=== PATIENT | male | born 2000 | race Caucasian/White ===

== ENCOUNTER 2024-07-04 21:12 | Inpatient (IN) | payer OTHER, SELFPAY ==
[2024-07-04] VITALS (7 sets, daily range): BP systolic 108–137; BP diastolic 50–75; BMI 31.2; BMI 31.1
[2024-07-04 19:36] LABS: Glucose - Point of Care > 600 mg/dl (70-99)
[2024-07-04 19:58] LABS: % Basophils 0.3 % (0-2); % Immature Granulocytes 1.6 % (0-0.5); % Lymphocytes 4.9 % (20.5-51.1); % Monocytes 5.4 % (1.7-9.3); % Neutrophils 87.8 % (42.2-75.2); Absolute Basophils 0.1 10^3/uL (0-0.2); Absolute Immature Granulocytes 0.3 10^3/uL (0-0.05); Absolute Monocytes 1.1 10^3/uL (0.1-0.6); Absolute Neutrophils 17.1 10^3/uL (1.4-6.5); Hematocrit 46.1 % (39.0-52.0); Hemoglobin 14.1 g/dL (13.0-18.0); Mean Corp Hgb Conc. 30.6 g/dL (33.0-37.0); Mean Corpuscular Hgb 27.3 pg (27.0-31.0); Mean Corpuscular Volume 89.3 fL (80.0-94.0); Mean Platelet Volume 10.4 fL (7.4-10.4); Nucleated Red Blood Cells % 0 % (-); Platelet Count 413 10^3/uL (130-400); Red Blood Cell Count 5.16 10^6/uL (4.70-6.10); Red Cell Dist. Width 13.9 % (11.5-14.5); White Blood Cell Count 19.4 10^3/uL (4.8-10.8)
[2024-07-04 20:17] LABS: ALT (SGPT) 32 U/L (0-50); AST (SGOT) 25 U/L (17-59); Albumin 4.8 g/dl (3.5-5.0); Alkaline Phosphatase 117 U/L (38-126); Blood Urea Nitrogen 42 mg/dl (9-20); Calcium 8.6 mg/dl (8.4-10.2); Carbon Dioxide < 5 mmol/L (22-30); Chloride 86 mmol/L (98-107); Estimated Creatinine Clearance 53 ml/min; Sodium 126 mmol/L (135-145); Total Bilirubin 1.4 mg/dl (0.2-1.3); Total Protein 6.9 g/dl (6.3-8.2)
[2024-07-04 20:19] LABS: COVID-19 Antigen Negative (Negative)
--- NOTE | 2024-07-04 20:32 | ED.GENMED ---
History of Present Illness
General
Chief Complaint: Blood Sugar Problem
Source: patient
Exam Limitations: none
Time Seen by Provider: 07/04/24 20:08
Nursing documentation reviewed up to this point in time: agreed with
History of Present Illness
History of Present Illness:
23-year-old male presents with nausea vomiting recently discharged from snf, tells me he has been able to get his insulin, although this is unclear, triage notes that he had some issues with his supplies, he has been living in a hotel, he was
incarcerated for a few days, denies any alcohol, apparently has a history of mental illness in addition to diabetes, denies chest pain or shortness of breath denies fevers
Past History
Past History
ED Past Medical History: IDDM and Psychiatric (Anxiety, depression, cognitive disability)
ED Past Surgical History: None
Social History
Tobacco: Non-smoker
Alcohol: None
Drug: None
Personal: Single
Living: alone
Employment: Not employed
Review of Systems
Review of Systems
All Other Systems: Not applicable
Constitutional: Reports fatigue
Respiratory: Reports no symptoms
Cardiac: Reports no symptoms
ABD/GI: Reports nausea and vomiting
Neurological: Reports dizzy
Endocrine: Reports polydipsia
Hematologic/Lymphatic: Reports no symptoms
Phy Exam
Physical Exam
Physical Exam:
Physical Exam
General: Ill-appearing male
Neck: Dry lips
Heart: Tachycardia
Lungs: no acute respiratory distress. clear bilaterally
Abdomen: Nontender
Neuro: alert and oriented. no focal neurological deficits
Skin: no rash
Psychiatric: cooperative
Extremities: no edema.
Course
Orders/Labs/Results
Orders:
Orders
07/04/24 19:38
EKG [Electrocardiogram (*1)] Urgent
Reason for Study: Other
Other Reason for Exam: blood sugar, dyspnea
07/04/24 19:39
EKG- Treatment ONCE
07/04/24 19:50
COVID-19 Antigen Urgent
Source: Nasal Swab
Complete Blood Count/With Diff Urgent
Comprehensive Metabolic Panel Urgent
Influenza A+B Rapid Molecular Urgent
IVANIA Source: Nasal Swab
Specimen Description:
07/04/24 20:24
Arterial Blood Gas Urgent
%Oxygen/Room Air: ra
B-Hydroxybutyrate Urgent
Basic Metabolic Panel Q2H
Glycohemoglobin (HgbA1c) Urgent
Urinalysis Urgent
0.9% Sodium Chloride 1000 ml [Nss] 1,000 ml IV BOLUS
0.9% Sodium Chloride 1000 ml [Nss] 1,000 ml IV BOLUS
Reg Insulin 100 Units/100 ml [Novolin R Insulin Infusion] 100 units in 100 ml IV NOW
07/04/24 20:25
Electrocardiogram (*1) Urgent
Reason for Study: QTc Monitoring
Bedside Glucose- Treatment Q1H
EKG- Treatment ONCE
IV Insert/Care/Rem.- Treatment PRN
CR Chest Portable - 1 View Urgent
Comment:
Reason For Exam: icue atdmit
Reason Study Needs to be Portable: Unable to Transport
07/04/24 22:30
Basic Metabolic Panel Q2H
07/05/24 00:30
Basic Metabolic Panel Q2H
Abnormal Lab Results
07/04/24 07/04/24
19:34 19:50
WBC 19.4 H 10^3/uL
(4.8-10.8)
MCHC 30.6 L g/dL
(33.0-37.0)
Plt Count 413 H 10^3/uL
(130-400)
Abs Immat Gran (auto) 0.3 H 10^3/uL
(0-0.05)
Absolute Neuts (auto) 17.1 H 10^3/uL
(1.4-6.5)
Absolute Lymphs (auto) 1.0 L 10^3/uL
(1.2-3.4)
Absolute Monos (auto) 1.1 H 10^3/uL
(0.1-0.6)
Immature Gran % 1.6 H %
(0-0.5)
Neutrophils % 87.8 H %
(42.2-75.2)
Lymphocytes % 4.9 L %
(20.5-51.1)
Sodium 126 L mmol/L
(135-145)
Potassium 7.0 H* mmol/L
(3.5-5.1)
Chloride 86 L mmol/L
(98-107)
Carbon Dioxide < 5 L* mmol/L
(22-30)
BUN 42 H mg/dl
(9-20)
Creatinine 2.4 H mg/dL
(0.7-1.3)
Total Bilirubin 1.4 H mg/dl
(0.2-1.3)
POC Glucose > 600 H* mg/dl
(70-99)
07/04/24 19:50
Vital Signs
Initial and Last Documented VS:
Initial Vital Signs
Temp Pulse Resp BP Pulse Ox
98.0 F 140 36 117/75 98
07/04/24 19:33 07/04/24 19:33 07/04/24 19:33 07/04/24 19:33 07/04/24 19:33
Last Documented Vital Signs
Temp Pulse Resp BP Pulse Ox
98.0 F 140 36 117/75 98
07/04/24 19:43 07/04/24 19:33 07/04/24 19:33 07/04/24 19:39 07/04/24 19:44
MDM/Problems Addressed
Differential Diagnosis Includes:
DKA enteritis HHNK hyperkalemia dehydration
MDM/Problems Addressed:
Hyperglycemia
Chronic conditions affecting care: DM, Psychiatric illness and Kidney disease
Acute Exacerbation and/or Progression of Chronic Illness: DM, Psychiatric illness and Kidney disease
*Radiology
Radiology exam reviewed: preliminary read by ED provider
*Pulse Oximetry
Patient hypoxic: no
*EKG
Interpreted by ED Provider?: Yes
Interpretation: abnormal
Comparison EKG: no comparison EKG present
Heart Rate: 78
Rate: normal
Rhythm: sinus
Ischemia: non-specific ST changes
*Hematology Technician Interpretation
Rate: normal
Interpretation: normal
Heart Rate: 78
Rhythm: sinus
*Critical Care Note
Total Time (30-74mins, 75-104mins- exclusive of procedures): 34
Update Note
Update Note:
Update labs noted, check ABG, started on saline hydration, IV insulin follow follow electrolytes closely
CRITICAL CARE STATEMENT: A total of 32 minutes of critical care time was provided for this patient. This includes management of unstable vital signs, evaluation of the patient at bedside, reviewing the patient's pertinent medical records discussion
with EMS providers and patient's family in addition to discussion with consultants, review of old EKGs and review of pertinent medical records. This time with separate from time utilized to perform the aforementioned documented procedures
ED Attending Note
-
Portions of this chart may have been created with voice recognition software.� Occasional wrong word or��sound alike� substitutions may have occurred due to the inherent limitations of voice recognition software.
Discharge Plan
Departure
Patient Disposition: Admit
Date of Disposition: 07/04/24
Time of Disposition: 20:36
Admit to: ICU
Presentation/result/management discussed w/ accepting MD/DO: Hospitalist
Patient with high blood pressure during this ER visit?: No
Condition: Serious
Covid-19: Not Applicable
Discharge Problem:
DKA, type 1, ANDREY (acute kidney injury), DKA (diabetic ketoacidosis), Acute hyperkalemia, Acute renal failure (ARF)
Prescriptions:
No Action
Pt Own Insulin Pump
0 units SC .CONTINUOUSLY
Patient Comments:
10/11/2022: Pt uses Novolog Flexpen to fill pump
09/18/22 Per patient he was using novolog flexpen to fill his pump. Unsure of basal rate, gave himself bolus with meals. The pump has been removed since Saturday and he was using Novolog flexpen
sertraline 100 mg tablet
200 mg PO DAILY@1100
aripiprazole 15 mg tablet
15 mg PO DAILY@1100
Referrals:
Aidan Roberto MD [Family Provider] -
Interventions
Interventions:
*Risk Screen - Suicide Last Done: 07/04/24 19:33
*General Assessment Last Done: 07/04/24 19:33
*Neglect/Abuse Screening Last Done: 07/04/24 19:33
ED- Fall Risk Assessment Last Done: 07/04/24 19:44
*ED COVID-19 Vaccine History Last Done: 07/04/24 19:43
ED- Neurological Assessment Last Done: 07/04/24 19:44
Discharge Date and Time
Print Language: HUNGARIAN
[2024-07-04] MEDS: NSS 1000 IV ×2 (20:38)
[2024-07-04 20:44] LABS: Glucose 1065 mg/dl (70-99)
--- NOTE | 2024-07-04 20:48 | HPS.HSE ---
Family Physician
-
Family Physician: Aidan Roberto
Chief Complaint
-
vomiting
History of Present Illness
23-year-old male past medical history of type 1 diabetes, mood disorder, obesity, presenting with vomiting for the past 6 days. 6 days ago he started running low on insulin and cutting down on the amount of insulin he has been taking. He normally
takes 100 units of long-acting insulin as well as 25 units of Humalog 3 times a day before meals. He is only been taking 30 units a day for the past 6 days due to running low on supplies. He denies any abdominal pain. He denies any urinary
symptoms. He denies diarrhea.
He denies upper respiratory symptoms but does have some shortness of breath. He denies chest pain.
Patient was apparently recently discharged from custodial. He has apparently recently been living in a hotel. He denies alcohol, smoking or any drug use.
Medical History
Past Medical History
Past Medical History: Reports Other ( type 1 diabetes, mood disorder, obesity,)
Past Surgical History: Reports None
Social History
Tobacco: Non-smoker
Alcohol: None
Drug: None
Family History
Family History: Not pertinent
Allergies / Home Medications
Allergies reflects when Allergies were last updated in [employer].
Home Medications with original date entered in [employer]
Allergy/Medication List:
Allergies
Allergy/AdvReac Type Severity Reaction Status Date / Time
No Known Allergies Allergy Unverified 09/18/22 14:06
Home Medications
Pt Own Insulin Pump 0 units SC .CONTINUOUSLY Diabetes 09/18/22
aripiprazole 15 mg tablet 15 mg PO DAILY@1100 Mental Health/Anxiety 09/18/22
sertraline 100 mg tablet 200 mg PO DAILY@1100 Mental Health/Anxiety 09/18/22
Review of Systems
-
History Source: Patient
A 12 point ROS was completed and negative except as noted: Yes
Constitutional: Reports No Symptoms
EENT: Reports No Symptoms
Respiratory: Reports No Symptoms
Cardiac: Reports No Symptoms
Abdomen/GI: Reports See HPI
: Reports No Symptoms
Musculoskeletal: Reports No Symptoms
Skin: Reports No Symptoms
Neurological: Reports No Symptoms
Endocrine: Reports No Symptoms
Hematologic/Lymphatic: Reports No Symptoms
Psych: Reports No Symptoms
Physical Exam
Vital Signs
Vital Signs
Temp Pulse Resp BP Pulse Ox
98.0 F 140 36 117/75 98
07/04/24 19:43 07/04/24 19:33 07/04/24 19:33 07/04/24 19:39 07/04/24 19:44
Physical Exam
General: Well Developed, Well Nourished and No Apparent Distress
HEENT: NormoCephalic, Moist mucous membranes and Atraumatic
Respiratory: Clear
Cardiac: S1/S2 and Regular Rhythm; No Murmur or Rub
GI: Soft, Non Tender, Non Distended and Normal Bowel Sounds; No Organomegaly
Rectal: Deferred by Provider
Musculoskeletal: No Clubbing, No Cyanosis and No Edema
Skin: No Rash
Neuro: Nonfocal/grossly intact
Laboratory Results
-
07/04/24 19:50
Laboratory Results
Total Bilirubin 1.4 mg/dl (0.2-1.3) H 07/04/24 19:50
AST 25 U/L (17-59) 07/04/24 19:50
ALT 32 U/L (0-50) 07/04/24 19:50
Alkaline Phosphatase 117 U/L (38-126) 07/04/24 19:50
Data Reviewed
-
Lab Data: Labs Reviewed by me
Old Records: Reviewed
Impression/Plan
-
IMPRESSION:
PLAN:
# DKA secondary to insulin noncompliance
# Anion gap metabolic acidosis
# History of type 1 diabetes
-Blood sugar 1065
-Chest x-ray, urinalysis pending
-VBG pending
-N.p.o.
-IV fluids normal saline 250 cc/hr without potassium
-Insulin drip
-Accu-Cheks every hour
-Check A1c
-BMP 4-hour
# Acute kidney injury
# Severe hyperkalemia secondary to insulin deficiency
-EKG shows sinus tachycardia, incomplete right bundle branch block with peaked T waves
-Monitor urine output
-Monitor with IV fluids
-Calcium gluconate
Mood disorder
-Continue sertraline, aripiprazole
Obesity
Full code
DVT prophylaxis�heparin
N.p.o.
[2024-07-04] MEDS: NOVOLIN R INSULIN INFUSION 100 IV (20:56)
[2024-07-04 21:00] LABS: Urine Albumin Negative (Neg - Trace); Urine Bilirubin Negative (Negative); Urine Character Clear (Clear); Urine Color Yellow; Urine Glucose 3+ (Negative); Urine Ketone 3+ (Negative); Urine Leukocyte Negative (Negative); Urine Nitrite Negative (Negative); Urine Occult Blood Negative (Negative); Urine Urobilinogen Negative (Neg - 1+)
[2024-07-04] MEDS: CALCIUM GLUCONATE 1000 MG IV (21:04)
[2024-07-04 21:16] LABS: B.E. -22.9 mmol/L; O2 Saturation % 80.8 % (94-98)
[2024-07-04 21:22] LABS: HCO3 4.9 mmol/L (21-28); PCO2 16 mmHg (35-48); PO2 55 mmHg (83-108); pH 7.09 (7.35-7.45)
[2024-07-04 21:28] LABS: Blood Urea Nitrogen 45 mg/dl (9-20); Calcium 8.4 mg/dl (8.4-10.2); Carbon Dioxide < 5 mmol/L (22-30); Chloride 86 mmol/L (98-107); Estimated Creatinine Clearance 66 ml/min; Glucose 1127 mg/dl (70-99); Potassium 7.2 mmol/L (3.5-5.1); Sodium 125 mmol/L (135-145); eGFR 49.89
--- NOTE | 2024-07-04 21:54 | PTCARENOTE ---
Addendum entered by Chuyita Lynn RN 07/05/24 01:36:
2nd Liter NS bolus still infusing from the ED. Approx 500cc left in bag.
Original Note:
Patient arrived from the ED via stretcher accompanied by RN. Transferred and admitted to ICU 3365. Jace is quite anxious but cooperative. Emotional support and encouragement given as needed. He is ST on CM with HR 130-150s. He is tachypneic but
denies feeling SOB. No cough. He was incontinent of urine. Complete CHG bath given, pericare. He also voids per urinal. His mouth is very dry. Provided wet swab and ointment to lips. Instructed patient with regard to NPO status. BS every 1 hour,
venous blood sugar per protocol. Currently on Insulin gtt at 4.6U/hr. Insulin gtt titrated per order. BBS clear. S1S2 regular but tachycardic. No edema, pulses palpable x 4 extremities. Skin is cool but dry, fingertips cold. Patient denies feeling
cold. Seems forgetful at times and requires reminding, however, he is oriented. Denies pain. Denies nausea at this time.
[2024-07-04 22:08] LABS: Glucose - Point of Care > 600 mg/dl (70-99)
[2024-07-04 22:13] LABS: B-Hydroxybutyrate > 9.0 mmol/L (0.02-0.27)
[2024-07-04 22:56] LABS: Blood Urea Nitrogen 42 mg/dl (9-20); Carbon Dioxide < 5 mmol/L (22-30); Chloride 96 mmol/L (98-107); Estimated Creatinine Clearance 57 ml/min; Glucose 850 mg/dl (70-99); Potassium 5.3 mmol/L (3.5-5.1); Sodium 130 mmol/L (135-145); eGFR 41.84
--- NOTE | 2024-07-04 23:15 | PTCARENOTE ---
Jace is c/o nausea, dry heaving. Vikki BRICE notified, new orders received. Zofran given.
[2024-07-04 23:21] LABS: Glucose - Point of Care > 600 mg/dl (70-99)
[2024-07-04] MEDS: ZOFRAN 4 MG IV (23:26)
[2024-07-04 23:47] LABS: Magnesium 2.7 mg/dl (1.6-2.3); Phosphorus 5.2 mg/dl (2.5-4.5)
[2024-07-05] VITALS (24 sets, daily range): BP systolic 108–136; BP diastolic 54–86; BMI 31.1
[2024-07-05 00:04] LABS: Glucose 728 mg/dl (70-99)
[2024-07-05] MEDS: NSS 1000 IV (00:05)
--- NOTE | 2024-07-05 00:15 | PTCARENOTE ---
Patient continues to be quite anxious, states 'feels jittery.' Emotional support and encouragement given as needed. Blood sugars continue to read high on glucose monitor. Lab draws per protocol. Insulin gtt at 6u/hr, titrated per protocol. Bilateral
hands remain cold, skin cool and yet patient denies feeling cold. Remains tachypneic. Rest of physical assessment unchanged. HR 140s on CM, ST.
[2024-07-05 00:28] LABS: Glucose - Point of Care > 600 mg/dl (70-99)
[2024-07-05 01:07] LABS: Blood Urea Nitrogen 42 mg/dl (9-20); Calcium 8.3 mg/dl (8.4-10.2); Carbon Dioxide < 5 mmol/L (22-30); Chloride 100 mmol/L (98-107); Estimated Creatinine Clearance 66 ml/min; Glucose 613 mg/dl (70-99); Potassium 4.6 mmol/L (3.5-5.1); Sodium 135 mmol/L (135-145); eGFR 49.89
[2024-07-05 01:23] LABS: Glucose - Point of Care > 600 mg/dl (70-99)
[2024-07-05 01:41] LABS: Glucose 451 mg/dl (70-99)
[2024-07-05 02:19] LABS: Glucose - Point of Care 393 mg/dl (70-99)
--- NOTE | 2024-07-05 02:30 | PTCARENOTE ---
Patient now calmer and dozing intermittently. HR improving 130s. Respirations less tachypneic. Blood sugars continue to improve.
[2024-07-05 03:24] LABS: Glucose - Point of Care 297 mg/dl (70-99)
[2024-07-05 04:20] LABS: Glucose - Point of Care 222 mg/dl (70-99)
[2024-07-05] MEDS: D5/0.45%NSS with KCL 20 MEQ 1000 IV ×4 (04:28→23:59)
--- NOTE | 2024-07-05 04:30 | PTCARENOTE ---
Addendum entered by Chuyita Lynn RN 07/05/24 06:20:
Correction: Extremities now warm. Patient is calm.
Original Note:
Patient appears to be sleeping comfortably with eyes closed, lying still, respirations non labored and regular. HR continues to improve, 129 BPM, ST. No complaints offered. No further episodes of dry heaving. Fingerstick BS 222, Vikki BRICE notified,
new orders received for IVF change. Rest of assessment unchanged.
[2024-07-05 04:52] LABS: % Basophils 0.3 % (0-2); % Monocytes 9.6 % (1.7-9.3); % Neutrophils 79.1 % (42.2-75.2); Absolute Basophils 0.1 10^3/uL (0-0.2); Absolute Immature Granulocytes 0.2 10^3/uL (0-0.05); Absolute Lymphocytes 1.6 10^3/uL (1.2-3.4); Absolute Monocytes 1.5 10^3/uL (0.1-0.6); Absolute Neutrophils 12.6 10^3/uL (1.4-6.5); Hematocrit 44.1 % (39.0-52.0); Hemoglobin 14.6 g/dL (13.0-18.0); Mean Corp Hgb Conc. 33.1 g/dL (33.0-37.0); Mean Corpuscular Hgb 27.3 pg (27.0-31.0); Mean Corpuscular Volume 82.6 fL (80.0-94.0); Mean Platelet Volume 9.6 fL (7.4-10.4); Nucleated Red Blood Cells % 0 % (-); Platelet Count 342 10^3/uL (130-400); Red Blood Cell Count 5.34 10^6/uL (4.70-6.10); Red Cell Dist. Width 13.6 % (11.5-14.5); White Blood Cell Count 15.9 10^3/uL (4.8-10.8)
[2024-07-05 04:56] LABS: INR 1.13; PT 14.8 Sec (11.4-14.6)
[2024-07-05 04:57] LABS: APTT 24.8 Sec (23.4-35.0)
[2024-07-05 05:27] LABS: Blood Urea Nitrogen 39 mg/dl (9-20); Calcium 9.2 mg/dl (8.4-10.2); Carbon Dioxide 7 mmol/L (22-30); Chloride 107 mmol/L (98-107); Estimated Creatinine Clearance 90 ml/min; Glucose 234 mg/dl (70-99); Magnesium 2.6 mg/dl (1.6-2.3); Sodium 140 mmol/L (135-145); eGFR > 60.00
[2024-07-05 05:34] LABS: Glucose - Point of Care 208 mg/dl (70-99)
[2024-07-05] MEDS: NSS IV (06:15)
[2024-07-05 06:59] LABS: Glucose - Point of Care 207 mg/dl (70-99)
--- NOTE | 2024-07-05 07:00 | PTCARENOTE ---
Report given verbally to DAVID Glaser. Questions answered.
[2024-07-05 07:11] LABS: Glucose - Point of Care 198 mg/dl (70-99)
--- NOTE | 2024-07-05 07:24 | CON.INTV ---
Consultation
Consultation Request
Date/Time Consultation Requested: 07/05/24
Date/Time Consultation Performed: 07/05/24
Performing Provider: Faye
Reason for Consultation: ICU
Medical History
-
History of Present Illness:
Patient is a 23-year-old male with previous history of type 1 diabetes, mood disorder, obesity presenting with vomiting for the past 6 days. He notes that he had been running on low supply of insulin and had been using half of what he should be
taking. He normally takes 100 units of Lantus with 25 units of Humalog with meals. He was recently released from residential and has been living in a hotel.
He had previously been managed with an insulin pump but is no longer using this. He follows with Dr. Roa for his diabetes management.
He has been hospitalized in the past for DKA.
Past Medical History
Past Medical History: Other (see list below)
Social History
Tobacco: Non-smoker
Alcohol: None
Drug: None
Family History
Family History: Reviewed & Not Pertinent
Allergies / Home Medications
Allergies
Allergy/AdvReac Type Severity Reaction Status Date / Time
No Known Allergies Allergy Unverified 09/18/22 14:06
Home Medications
�Medication �Instructions �Recorded �Confirmed �Last Taken �Type
Pt Own Insulin Pump 0 units SC .CONTINUOUSLY Diabetes 09/18/22 10/11/22 09/18/22 History
10 units
aripiprazole 15 mg tablet 15 mg PO DAILY@1100 Mental 09/18/22 10/11/22 10/11/22 History
Health/Anxiety
sertraline 100 mg tablet 200 mg PO DAILY@1100 Mental 09/18/22 10/11/22 10/11/22 History
Health/Anxiety
Review of Systems
-
History Source: Patient
All other systems: Negative unless noted
Vitals / Labs / Diagnostic Testing
Vital Signs
Temp Pulse Resp BP Pulse Ox
98.0 F 122 17 121/74 94
07/05/24 03:21 07/05/24 06:00 07/05/24 06:00 07/05/24 06:00 07/05/24 06:00
Lab Data
07/05/24 04:19
Laboratory Results
07/04/24 07/05/24
21:07 04:19
PT 14.8 H
INR 1.13
APTT 24.8
pH 7.09 L*
pCO2 16 L*
pO2 55 L*
HCO3 4.9 L*
O2 Delivery Level
Microbiology
07/04/24 19:50 Nasal Swab Influenza Types A & B (DAVID) - Final
Negative for Influenza A & B, NAAT
Negative results must be combined with clinical observations
and patient history.
Nucleic Acid Amplification test (NAAT)performed on the
[employer] platform.
Diagnostic Testing:
Physical Exam
-
HEENT: Normocephalic, Anicteric, Moist Mucous Membranes and Other (facial flushing)
Cardiovascular: S1/S2 and Regular Rhythm
Respiratory: Clear and Non-Labored Respirations
GI: Soft, Non Distended and Non Tender
Neurology: Awake, Alert, Oriented and No Motor Deficits
Skin: Warm, Dry and Good Color
General: Comfortable and Other (NAD)
Assessment
-
Patient is a 23-year-old male with previous history of type 1 diabetes, mood disorder, obesity presenting with vomiting for the past 6 days. He notes that he had been running on low supply of insulin and had been using half of what he should be
taking. He normally takes 100 units of Lantus with 25 units of Humalog with meals. He was recently released from residential and has been living in a hotel.
He had previously been managed with an insulin pump but is no longer using this. He follows with Dr. Roa for his diabetes management.
DKA 2/2 med noncompliance/lack of access
Recent incarceration
Vomiting
AGMA
Leukocytosis
ANDREY, peak 2.4 (BL 0.7)
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
DKA adm DH 09/2022 + Adm DH 08/2022
T1DM, on insulin pump
Obesity
Depression
Cognitive impairment
Nonsmoker
Plan
DKA, admitting BS elevated, AG >35
Started on insulin drip, can wean today following protocol, start D5 IVFs
Consult diabetic nurse for insulin recommendations
BMP q4 to follow gap
He has a high dose regiment at home, no longer on pump
Can restart diet once able to bridge
H/o poorly controlled diabetes, hopeful transition to home meds
HbA1c 9.8 in past, repeat pending
Admits triggers include noncompliance/lack of access
NPO for now
Diet transition following DKA protocol
GI ppx if indicated
Hemodynamically stable, not requiring pressors.
No prior h/o cardiac disease
Monitor on telemetry
Oxygen needs: Stable on RA
No prior h/o pulmonary disease
Aspiration precautions
CXR w/o acute process
ANDREY noted, likely due to acidosis process/dehydration/pre-renal causes
Creat at baseline 0.6-0.7, follow UO
Acid/base status: AGMA 2/2 DKA, follow until AG <12
No signs/symptoms suspicious for infectious etiology at this time.
UA neg, CXR neg
WBC noted but likely reactive
Will observe off antibiotics for now.
Follow fever trend, WBC count.
DVT ppx SCDs
Diagnostic Data
CXR 07/04/24- No evidence of active cardiopulmonary disease.
CXR 10-12-22: no comparison films. Portable, no infiltrates
US abd 09-19-22 IMPRESSION: Hepatic fatty infiltration. Mild hepatomegaly. Nonvisualization of the pancreas.
Reports and relevant images were personally reviewed.
-----
Critical care time 50 mins -- this includes review of history, physical exam, medications, hemodynamic/ventilator parameters, laboratory data, imaging and discussion with house staff, pharmacy, respiratory therapy, home sales consultant, and nursing.
[2024-07-05] MEDS: HEPARIN 5000 UNITS SC ×2 (08:06→19:34)
[2024-07-05 08:10] LABS: Glucose - Point of Care 265 mg/dl (70-99)
--- NOTE | 2024-07-05 08:10 | PTCARENOTE ---
Received pt awake and alert.Speech is appropriate.Denies pain.ST noted.IVF and Insulin gtt infusing.POX 99% on RA.Lungs CTA.NPO.No BM.Voiding yellow urine.Skin intact.Pt's girlfriend at bedside.Plan of care discussed.
--- NOTE | 2024-07-05 08:20 | W.PN.HOSP.TC ---
Today's Communication/Plan
-
Follow BMP
Continue insulin drip
Assessment / Plan
Assessment / Plan
1. DKA
-Patient was rationing insulin due to unable to get regular dose
-Hemoglobin A1c of 9.8% sep 23. Repeat A1c pending
-Patient came in with severe acidosis/bicarb less than 5, associated metabolic derangement of hyponatremia/hyper-K
-Currently on insulin drip at rate of 4 unit/h
-Last BMP showing bicarb of 7, continue monitor
-Glucose in 200 300 range and has been started on D5/half NS/potassium IVF
-Will require diabetes nurse petitioner involvement once out of DKA
2. ANDREY
-Secondary to volume depletion
-Admission creatinine 2.5 rapidly improving and 1.4 today
-Continue monitoring
3. Leukocytosis
-UA/chest x-ray clear. No wound
-Patient is afebrile
-Likely reactive monitor off of antibiotic
History of mood disorder
Obesity
DVT PPX - Heparin subq
Full code
Total critical care time 38 mins . Total critical care time documented does not include time spent on separately billed procedures or the services of residents, students, nurses or physician assistants. I personally saw and examined the patient. I
have reviewed all diagnostic interpretations and treatment plans as written. I was present for the joel portions of any procedures performed and the inclusive time noted in any critical care statement. Critical care time includes patient management
by me, time spent at the patients bedside, time to review lab and imaging results, discussing patient care, documentation in the medical record, and time spent with the family or caregiver.
Anticipated Discharge: 24 - 48 hours
Subjective/Interval History
-
Date of Service: July 05, 2024
Resting comfortably in bed
Denies of any ongoing abdominal pain/nausea
Afebrile overnight
Objective Data
-
Labs:
Laboratory Results
07/04/24 07/04/24 07/04/24
19:50 20:54 21:07
WBC
Hgb
Hct
Plt Count
PT
INR
APTT
HCO3 4.9 L*
Sodium 125 L
Potassium 7.2 H*
Chloride 86 L
Carbon Dioxide < 5 L*
BUN 45 H
Creatinine 1.9 H
Glucose 1065 H* 1127 H*
Calcium 8.4
07/04/24 07/04/24 07/04/24
22:19 22:19 22:19
WBC
Hgb
Hct
Plt Count
PT
INR
APTT
HCO3
Sodium 130 L
Potassium 5.3 H D Cancelled
Chloride 96 L
Carbon Dioxide < 5 L*
BUN 42 H
Creatinine 2.2 H
Glucose 850 H* Cancelled
Calcium 8.0 L
07/04/24 07/05/24 07/05/24
23:21 00:24 00:24
WBC
Hgb
Hct
Plt Count
PT
INR
APTT
HCO3
Sodium 135
Potassium 4.6
Chloride 100
Carbon Dioxide < 5 L*
BUN 42 H
Creatinine 1.9 H
Glucose 728 H* 613 H* Cancelled
Calcium 8.3 L
07/05/24 07/05/24 07/05/24
01:18 04:19 08:04
WBC 15.9 H
Hgb 14.6
Hct 44.1
Plt Count 342
PT 14.8 H
INR 1.13
APTT 24.8
HCO3
Sodium 140 Pending
Potassium 5.0 Pending
Chloride 107 Pending
Carbon Dioxide 7 L* Pending
BUN 39 H Pending
Creatinine 1.4 H Pending
Glucose 451 H* 234 H Pending
Calcium 9.2 Pending
07/05/24 07/05/24 07/05/24
12:00 16:00 20:00
WBC
Hgb
Hct
Plt Count
PT
INR
APTT
HCO3
Sodium Pending Pending Pending
Potassium Pending Pending Pending
Chloride Pending Pending Pending
Carbon Dioxide Pending Pending Pending
BUN Pending Pending Pending
Creatinine Pending Pending Pending
Glucose Pending Pending Pending
Calcium Pending Pending Pending
Vital Signs:
Vital Signs
Temp Pulse Resp BP Pulse Ox
98.0 F 127 16 127/77 98
07/05/24 07:00 07/05/24 07:30 07/05/24 07:30 07/05/24 07:00 07/05/24 07:58
I&O
07/04/24 07/05/24 07/06/24
06:59 06:59 06:59
Intake Total 4048.7 / 4200.7 306 / 306
Output Total 1575 / 2225 650 / 650
Balance 2473.7 / 1975.7 -344 / -344
Review of Systems
-
Respiratory: Reports No Symptoms
Cardiac: Reports No Symptoms
Abdomen/GI: Reports No Symptoms
Physical Exam
-
General: No Apparent Distress and Comfortable
HEENT: Negative Oxygen
Respiratory: Clear to Auscultation
Cardiac: Regular Rhythm, S1/S2 and Tachycardic; Negative Murmur or Rub
Neuro: Awake, Alert, Oriented and Nonfocal/Grossly Intact
Psych: Calm
[2024-07-05 08:45] LABS: Blood Urea Nitrogen 32 mg/dl (9-20); Calcium 8.4 mg/dl (8.4-10.2); Carbon Dioxide 12 mmol/L (22-30); Chloride 108 mmol/L (98-107); Estimated Creatinine Clearance 114 ml/min; Glucose 239 mg/dl (70-99); Potassium 4.5 mmol/L (3.5-5.1); Sodium 141 mmol/L (135-145); eGFR > 60.00
[2024-07-05 09:10] LABS: Glucose - Point of Care 226 mg/dl (70-99)
[2024-07-05 10:11] LABS: Glucose - Point of Care 241 mg/dl (70-99)
[2024-07-05 10:43] LABS: Glycohemoglobin (HgbA1c) 9.3 % (4.0-5.6)
[2024-07-05 11:10] LABS: Glucose - Point of Care 193 mg/dl (70-99)
--- NOTE | 2024-07-05 12:01 | PTCARENOTE ---
Addendum entered by Marj Fulton RN 07/05/24 12:19:
Juan F is the Cullet Crusher And Washer's name.
Original Note:
[facility] [phone]. He was able to give updated medication list which includes Vraylar. This medication is no-formulary as per pharmacist.Juan F will bring in this medication for
pharmacy.
[2024-07-05 12:12] LABS: Glucose - Point of Care 208 mg/dl (70-99)
--- NOTE | 2024-07-05 12:18 | SUR.OPER ---
Pt assessed.No change in assessment noted.
[2024-07-05 12:35] LABS: Blood Urea Nitrogen 27 mg/dl (9-20); Calcium 8.5 mg/dl (8.4-10.2); Carbon Dioxide 16 mmol/L (22-30); Chloride 108 mmol/L (98-107); Estimated Creatinine Clearance > 125 ml/min; Glucose 250 mg/dl (70-99); Potassium 4.5 mmol/L (3.5-5.1); Sodium 142 mmol/L (135-145); eGFR > 60.00
[2024-07-05 13:13] LABS: Glucose - Point of Care 226 mg/dl (70-99)
--- NOTE | 2024-07-05 13:22 | PTCARENOTE ---
Pt's Pulmonary Function Technologist brought Vraylar medication.Dr Marmolejo and pharmacy made aware.
[2024-07-05 14:12] LABS: Glucose - Point of Care 280 mg/dl (70-99)
[2024-07-05 15:18] LABS: Glucose - Point of Care 253 mg/dl (70-99)
--- NOTE | 2024-07-05 16:18 | PTCARENOTE ---
Pt assessed.No change in assessment.
[2024-07-05 16:23] LABS: Glucose - Point of Care 212 mg/dl (70-99)
[2024-07-05 16:40] LABS: Blood Urea Nitrogen 23 mg/dl (9-20); Calcium 8.5 mg/dl (8.4-10.2); Carbon Dioxide 19 mmol/L (22-30); Chloride 107 mmol/L (98-107); Estimated Creatinine Clearance > 125 ml/min; Glucose 234 mg/dl (70-99); Potassium 4.3 mmol/L (3.5-5.1); Sodium 140 mmol/L (135-145); eGFR > 60.00
[2024-07-05] MEDS: NOVOLIN R INSULIN INFUSION 100 IV (17:07)
[2024-07-05 17:16] LABS: Glucose - Point of Care 198 mg/dl (70-99)
--- NOTE | 2024-07-05 17:32 | PTCARENOTE ---
+ sleep apnea noted with occasional POX desaturation.O2 2l NC applied.
[2024-07-05 18:27] LABS: Glucose - Point of Care 247 mg/dl (70-99)
[2024-07-05 19:08] LABS: Glucose - Point of Care 243 mg/dl (70-99)
[2024-07-05] MEDS: NON-FORMULARY ITEM 3 MG PO (19:34)
--- NOTE | 2024-07-05 20:00 | PTCARENOTE ---
Rec'd pt resting in bed, significant other at bedside, denies pain, ST, bp stable, + pulses, skin warm/dry, O2 2 liters nc, lungs clear, sat 96, + bowel sounds, no bm, abd obese, soft, no n/v, voiding in urinal carlito urine, see flow sheet for
Insulin gtt titrations, q1 hr accu
[2024-07-05 20:15] LABS: Glucose - Point of Care 232 mg/dl (70-99)
[2024-07-05 21:12] LABS: Glucose - Point of Care 223 mg/dl (70-99)
[2024-07-05 21:29] LABS: Blood Urea Nitrogen 19 mg/dl (9-20); Calcium 8.5 mg/dl (8.4-10.2); Carbon Dioxide 19 mmol/L (22-30); Chloride 105 mmol/L (98-107); Estimated Creatinine Clearance > 125 ml/min; Glucose 287 mg/dl (70-99); Potassium 4.2 mmol/L (3.5-5.1); Sodium 138 mmol/L (135-145); eGFR > 60.00
[2024-07-05 22:09] LABS: Glucose - Point of Care 252 mg/dl (70-99)
[2024-07-05 23:10] LABS: Glucose - Point of Care 184 mg/dl (70-99)
[2024-07-06] VITALS (16 sets, daily range): BP systolic 116–149; BP diastolic 71–98; BMI 31.4
--- NOTE | 2024-07-06 | PTCARENOTE ---
sys reviewed, pt has sleep apnea, desats to 64 , O2 2 liters applied
[2024-07-06 00:04] LABS: Glucose - Point of Care 147 mg/dl (70-99)
[2024-07-06 00:26] LABS: Blood Urea Nitrogen 17 mg/dl (9-20); Calcium 8.5 mg/dl (8.4-10.2); Carbon Dioxide 24 mmol/L (22-30); Chloride 107 mmol/L (98-107); Estimated Creatinine Clearance > 125 ml/min; Glucose 175 mg/dl (70-99); Potassium 3.9 mmol/L (3.5-5.1); Sodium 141 mmol/L (135-145); eGFR > 60.00
[2024-07-06 01:09] LABS: Glucose - Point of Care 253 mg/dl (70-99)
[2024-07-06 02:09] LABS: Glucose - Point of Care 254 mg/dl (70-99)
[2024-07-06 03:08] LABS: Glucose - Point of Care 241 mg/dl (70-99)
[2024-07-06 04:10] LABS: Glucose - Point of Care 233 mg/dl (70-99)
--- NOTE | 2024-07-06 04:23 | PTCARENOTE ---
sys reviewed, changes noted
[2024-07-06 04:27] LABS: Hematocrit 38.4 % (39.0-52.0); Hemoglobin 12.8 g/dL (13.0-18.0); Mean Corp Hgb Conc. 33.3 g/dL (33.0-37.0); Mean Corpuscular Hgb 27.6 pg (27.0-31.0); Mean Corpuscular Volume 82.8 fL (80.0-94.0); Mean Platelet Volume 9.3 fL (7.4-10.4); Platelet Count 253 10^3/uL (130-400); Red Blood Cell Count 4.64 10^6/uL (4.70-6.10); White Blood Cell Count 10.4 10^3/uL (4.8-10.8)
[2024-07-06 04:45] LABS: Blood Urea Nitrogen 15 mg/dl (9-20); Calcium 8.3 mg/dl (8.4-10.2); Carbon Dioxide 22 mmol/L (22-30); Chloride 106 mmol/L (98-107); Estimated Creatinine Clearance > 125 ml/min; Glucose 255 mg/dl (70-99); Potassium 4.1 mmol/L (3.5-5.1); Sodium 141 mmol/L (135-145); eGFR > 60.00
[2024-07-06 05:07] LABS: Glucose - Point of Care 202 mg/dl (70-99)
[2024-07-06 06:08] LABS: Glucose - Point of Care 180 mg/dl (70-99)
[2024-07-06] MEDS: D5/0.45%NSS with KCL 20 MEQ 1000 IV (06:34)
[2024-07-06 07:07] LABS: Glucose - Point of Care 207 mg/dl (70-99)
--- NOTE | 2024-07-06 07:42 | W.PN.INTV ---
Today's Communication / Plan
Recommendations
Insulin drip
Diabetic nurse practitioner management
Increase diet
Adjust intravenous fluids
Replace electrolytes
If able to come off insulin drip and transfer out of ICU-call pulmonary if respiratory issues arise
Assessment
-
Patient is a 23-year-old male with previous history of type 1 diabetes, mood disorder, obesity presenting with vomiting for the past 6 days. He notes that he had been running on low supply of insulin and had been using half of what he should be
taking. He normally takes 100 units of Lantus with 25 units of Humalog with meals. He was recently released from half-way and has been living in a hotel.
He had previously been managed with an insulin pump but is no longer using this. He follows with Dr. Roa for his diabetes management. Icu Nurse consulted 07/05/2024
DKA 2/2 med noncompliance/lack of access
Recent incarceration
Vomiting
AGMA
Leukocytosis
ANDREY, peak 2.4 (BL 0.7)
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
DKA adm DH 09/2022 + Adm DH 08/2022
T1DM, on insulin pump
Obesity
Depression
Cognitive impairment
Nonsmoker
Plan
Remains critically ill on insulin drip
Supplemental oxygen as needed
Incentive spirometry
Monitor blood sugar
Monitor anion gap
Insulin drip
A1c-9.8
Diabetic nurse practitioner consultation noted-reviewed with them-appreciate input
Intravenous fluid resuscitation
Monitor potassium closely and replace appropriately
ANDREY resolved
Check cultures
Influenza negative
Follow troponin
DVT prophylaxis-on Lovenox
Begin nutrition
Early mobilization
If able to come off insulin drip then transfer out of ICU-call pulmonary if respiratory issues arise
Critical care statement: A total of 55 minutes of critical care time was provided for this patient today. This includes management of unstable vital signs, insulin drip management, evaluation of the patient at bedside, reviewing the patient's
pertinent medical records including radiographs, microbiology, laboratory evaluations, and discussion with primary team, consultants, charge nurse, and critical care nursing.
Diagnostic Data
CXR 07/04/24- No evidence of active cardiopulmonary disease.
CXR 10-12-22: no comparison films. Portable, no infiltrates
US abd 09-19-22 IMPRESSION: Hepatic fatty infiltration. Mild hepatomegaly. Nonvisualization of the pancreas.
Reports and relevant images were personally reviewed.
Subjective Dataa
Subjective Data
Date of Service:
Date of Service: July 06, 2024
Chief Complaint: Icu Nurse Follow Up and Pulmonary Follow Up
Subjective:
Feels better, less nauseous, hungry, no chest pain, shortness of breath or abdominal pain
Review of Systems
General: Other (Per HPI)
Objective Data
Data Reviewed
Vital Signs / I&O / Oxygen:
Vital Signs
Temp Pulse Resp BP Pulse Ox
98.4 F 115 17 120/74 97
07/06/24 07:37 07/06/24 05:00 07/06/24 05:00 07/06/24 05:00 07/06/24 07:37
Intake and Output
07/05/24 07/06/24 07/07/24
06:59 06:59 06:59
Intake Total 4048.7 / 4200.7 3671 / 3671
Output Total 1575 / 2225 2725 / 2725
Balance 2473.7 / 1975.7 946 / 946
SaO2 97
Nasal Cannula flow liters per 2
minute
Physical Exam
General: Respiratory Distress (n) and Comfortable
HEENT: Normocephalic, Anicteric and Moist Mucous Membranes
Cardiovascular: Regular Rhythm
Respiratory: Wheeze (n), Crackles (n), Rhonchi (n), Non-Labored Respirations, Accessory Resp Muscle Use (n) and Stridor (n)
GI: Soft, Non Distended and Non Tender
Neurology: Awake, Alert and No Motor Deficits
Skin: Warm, Good Color, Cyanosis (n), Jaundice (n) and Rash (n)
Labs/Micro/Reports
Lab Data
07/06/24 04:00
07/06/24 04:00
Microbiology
07/04/24 19:50 Nasal Swab Influenza Types A & B (DAVID) - Final
Negative for Influenza A & B, NAAT
Negative results must be combined with clinical observations
and patient history.
Nucleic Acid Amplification test (NAAT)performed on the
[employer] platform.
[2024-07-06] MEDS: HEPARIN 5000 UNITS SC (07:45)
--- NOTE | 2024-07-06 07:54 | PN.DE.MGMTRT ---
Insulin Management
- -
07/06/2024: Diabetes Management Consult:
23 year old male p/w vomiting x 6 days, admitted with DKA. Known to Diabetes team from prior admissions due to DKA adm 09/2022 + Adm 08/2022
PMH: Depression, obesity and T1DM since age 12. Reports he was recently incarcerated and that his insulin was discarded when he got to residential. 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
He normally takes 100 units of Lantus with 25-30 units of Humalog with meals and follows with Dr. Roa for his diabetes management.
He had previously been managed with an insulin pump but is no longer using this, has been on SQ insulin for about a year. Cr 2.0, eGFR 41.6, A1C 9.3%.
Pt awake, alert, oriented, sitting up in bed, able to discuss diabetes management, family at bedside.
He remains on insulin infusion, glucose range 180 to 254, requiring 2-4 units of insulin/hr. GAP closed.
BMP @[place] shows GAP closed, 4AM BMP shows GAP still open at 13. Will obtain STAT BMP and transition off drip to SQ insulin if GAP closed.
Give Lantus 50 units NOW. Turn drip off 1hr after administering Lantus, start lower dose of Lantus 80 units @ HS.
Start AC NovoLog 20 units and moderate corrective. 1800 ADA diet.
Will cont to follow and adjust insulin dose if necessary.
Will renew Rx for test strips and insulin- added to ambulatory orders
Diabetes History
- -
Type of Diabetes: 1
Pre-Admission Diabetes Regimen
07/05/24 07/05/24 07/05/24
08:04 12:12 16:12
Creatinine 1.1 1.0 0.9
07/05/24 07/05/24 07/06/24
21:02 23:54 04:00
Creatinine 0.8 0.7 0.8
Lab Results
Hemoglobin A1c 9.3 % (4.0-5.6) H 07/04/24 20:54
Insulin Pump Settings
IP Diabetes Regimen
07/05/24 07/05/24 07/05/24
07:58 08:04 08:59
Glucose 239 H
POC Glucose 265 H 226 H
07/05/24 07/05/24 07/05/24
10:00 10:59 12:01
Glucose
POC Glucose 241 H 193 H 208 H
07/05/24 07/05/24 07/05/24
12:12 13:02 14:01
Glucose 250 H
POC Glucose 226 H 280 H
07/05/24 07/05/24 07/05/24
15:06 16:10 16:12
Glucose 234 H
POC Glucose 253 H 212 H
07/05/24 07/05/24 07/05/24
17:05 18:16 18:56
Glucose
POC Glucose 198 H 247 H 243 H
07/05/24 07/05/24 07/05/24
20:04 21:01 21:02
Glucose 287 H
POC Glucose 232 H 223 H
07/05/24 07/05/24 07/05/24
21:59 22:59 23:53
Glucose
POC Glucose 252 H 184 H 147 H
07/05/24 07/06/24 07/06/24
23:54 00:57 01:57
Glucose 175 H
POC Glucose 253 H 254 H
07/06/24 07/06/24 07/06/24
02:57 03:59 04:00
Glucose 255 H
POC Glucose 241 H 233 H
07/06/24 07/06/24 07/06/24
04:55 05:57 06:56
Glucose
POC Glucose 202 H 180 H 207 H
Patient Education
--- NOTE | 2024-07-06 08:00 | PTCARENOTE ---
recd pt walking rounds, insulin and fluids infusing, hourly glucose and titration as ordered. visitor bedside. no distress. limited insight but very pleasant and cooperative.
[2024-07-06 08:03] LABS: Glucose - Point of Care 200 mg/dl (70-99)
[2024-07-06 09:11] LABS: Glucose - Point of Care 192 mg/dl (70-99)
[2024-07-06 10:01] LABS: Glucose - Point of Care 227 mg/dl (70-99)
--- NOTE | 2024-07-06 10:09 | W.PN.INTV ---
Today's Communication / Plan
Recommendations
Continue insulin infusion
BMP every 4 hours
Assessment
-
Impression
Patient is a 23-year-old male with Past medical history of type 1 diabetes, mood disorder, obesity admitted with diabetic ketoacidosis secondary to availability issues of insulin.Non.smoker,occasional vaping in past.No consistent two anion gaps
closed yet.On insulin infusion and D%/0.45%NSS/20 meq potassium.
Assessment
DKA secondary to medication non-compliance/lack of access
Recently released from long-term
Anion gap metabolic acidosis
Leukocytosis-resolved
Acute kidney injury-resolved
Other medical conditions
DKA prior admission in 2022 to [facility] for DKA in 2022
[id number](,9.8,This admission on 07/04/24-9.3%)
Increased BMI(31.4)
Mood disorder-takes aripiprazole and sertaline, continue as able
Plan
DKA secondary to medication non-compliance/lack of access
Admitted with BSR of 1065,Anion gap of 36
Today morning BSR 255 with anion gap of 13
Continue insulin infusion(2units/hr)
Monitor BMP every 4 hrs until 2 consistent gaps closed
Keep NPO for now
Can restart diet once able to bridge
HbA1c of 9.3 this admission suggests poor control,apprec diabetic nurse practitioner consult-started on 50 u s/c Lantus and 20 units aspart AC
Awake,alert
No prior history of cardiac disease,tachycardic,telemetry rythm shows sinus tachycardia
Oxygen needs: Stable on RA with no prior pulmonary issues
NPO,can restart diet once able to bridge,Lfts within normal limits,No GI prophylaxis
ANDREY resolved
I/o 3909/2550
Serum Cr back to baseline-plan to shift to enoxaprin for DVT prophylaxis
Acid/base status: AGMA secondary toDKA, follow until AG <12
No source of infection identified,chest x-ray,U/A,negative,antibiotics were discontinued,remained afebrile,reactive leukocytosis -self resolved
DVT ppx -Enoxaprin
Full code
Subjective Dataa
Subjective Data
Date of Service:
Date of Service: July 06, 2024
Chief Complaint: Non Destructive Testing Supervisor Follow Up
Subjective:
Patient has no acute complains,feels fine,no further vomiting episodes
Review of Systems
General: Elevated Blood Sugar and Other (Denied any fever, abdominal pain, chest pain palpitations, burning micturation, body aches, or any other complains on systemic review)
Objective Data
Data Reviewed
Vital Signs / I&O / Oxygen:
Vital Signs
Temp Pulse Resp BP Pulse Ox
98.4 F 115 17 120/74 97
07/06/24 07:37 07/06/24 05:00 07/06/24 05:00 07/06/24 05:00 07/06/24 07:37
Intake and Output
07/05/24 07/06/24 07/07/24
06:59 06:59 06:59
Intake Total 4048.7 / 4200.7 3671 / 3824 153 / 153
Output Total 1575 / 2225 2725 / 3275 550 / 550
Balance 2473.7 / 1975.7 946 / 549 -397 / -397
SaO2 97
Nasal Cannula flow liters per 2
minute
Physical Exam
General: Comfortable
HEENT: Normocephalic, Anicteric and Moist Mucous Membranes
Cardiovascular: S1-S2, Regular Rhythm and Other (tachycardia)
Respiratory: Clear and Non-Labored Respirations
GI: Soft, Non Distended and Normal Bowel Sounds
Neurology: Awake, Oriented and No Motor Deficits
Skin: Warm and Dry
Labs/Micro/Reports
Lab Data
07/06/24 04:00
Microbiology
07/04/24 19:50 Nasal Swab Influenza Types A & B (DAVID) - Final
Negative for Influenza A & B, NAAT
Negative results must be combined with clinical observations
and patient history.
Nucleic Acid Amplification test (NAAT)performed on the
[employer] platform.
[2024-07-06 10:12] LABS: Blood Urea Nitrogen 14 mg/dl (9-20); Calcium 8.1 mg/dl (8.4-10.2); Carbon Dioxide 26 mmol/L (22-30); Chloride 105 mmol/L (98-107); Estimated Creatinine Clearance > 125 ml/min; Glucose 257 mg/dl (70-99); Sodium 138 mmol/L (135-145); eGFR > 60.00
[2024-07-06] MEDS: LANTUS 0.5 UNITS SC (10:55)
[2024-07-06 11:06] LABS: Glucose - Point of Care 260 mg/dl (70-99)
--- NOTE | 2024-07-06 11:23 | CM ---
Addendum entered by Alec Muhammad 07/06/24 14:21:
cdl program coordinator Juan F phone number: [phone]. Juan F is requested to call him when pt is discharged and he will pick him up.
Original Note:
CM following re: discharge planning.
Discussed in Rounds, reviewed pt's chart, met with pt and a lady presents at bedside and she described herself as pt's .
Pt is a 23 year old male, admitted with primary dx of DKA.
Pt reports he has been staying with his in extended stay hot for 2 weeks, will return back to the hotel and will move to a rented house next Saturday. Pt reports he is enrolled in [facility] support program [facility], has customer service analyst
Juan F. Pt reports he usually takes insulin regularly, bu he was arrested to insulting a nurse and was jailed for 1 day and he did not take insulin for 24 hours. Also, pt admitted he was not compliant with insulin anyway. Pt's spouse stated she has a
daughter and her daughter stays with grandmother. 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
PCP: Aidan Roberto
Pharmacy: [facility]
D/C plan: return back to his temporary living arrangement at [facility] stay [facility] and to follow up with [facility] support [facility] for housing. Pt stated his customer service analyst Juan F will transport at discharge.
CM will follow with discharge plan updates as needed.
--- NOTE | 2024-07-06 11:34 | PTCARENOTE ---
insulin gtt and IV fluids with dextrose off, lantus given per order. pt aware need for coverage, ordered and awaiting lunch tray. in/out of bed, gait steady.
[2024-07-06] MEDS: NOVOLOG FLEXPEN-MODERATE RESISTANCE 7 UNITS SC (12:20)
[2024-07-06] MEDS: NOVOLOG FLEXPEN 20 UNITS SC ×2 (12:20→15:58)
[2024-07-06 12:21] LABS: Glucose - Point of Care 305 mg/dl (70-99)
--- NOTE | 2024-07-06 12:47 | W.PN.HOSP.TC ---
Today's Communication/Plan
-
Monitor vital signs see plan
Now gap closed and patient is hungry, being transition to subcu insulin and will initiate diet
Stable later today then transfer to the floors
Assessment / Plan
Assessment / Plan
DKA
-Patient was rationing insulin due to unable to get regular dose
-Hemoglobin A1c of 9.8% sep 23. Repeat A1c 9.3
-Patient came in with severe acidosis/bicarb less than 5, associated metabolic derangement of hyponatremia/hyper-K
Status post insulin drip, now being started on subcu insulin. Start diet. If stable then transfer to the floor for further monitoring.
Diabetes nurse petitioner following
ANDREY
-Secondary to volume depletion
-Admission creatinine 2.5 rapidly improving and now resolved
-Continue monitoring
Leukocytosis
-UA/chest x-ray clear. No wound
-Patient is afebrile
-Likely reactive monitor off of antibiotic
History of mood disorder
Obesity
on cariprazine; unsure about aripiprazole and sertraline. Asked RN to find
DVT PPX - Heparin subq
Full code
General: No Apparent Distress and Comfortable
HEENT: Negative Oxygen
Respiratory: Clear to Auscultation
Cardiac: Regular Rhythm, S1/S2 and Tachycardic; Negative Murmur or Rub
Neuro: Awake, Alert, Oriented and Nonfocal/Grossly Intact
Psych: Calm
Anticipated Discharge: Within 24 hours
Subjective/Interval History
-
Date of Service: July 06, 2024
Denies pain
Objective Data
-
Labs:
Laboratory Results
07/06/24 07/06/24 07/06/24
04:00 09:50 10:18
WBC 10.4
Hgb 12.8 L
Hct 38.4 L
Plt Count 253 D
Sodium 141 138 Pending
Potassium 4.1 4.0 Pending
Chloride 106 105 Pending
Carbon Dioxide 22 26 Pending
BUN 15 14 Pending
Creatinine 0.8 0.7 Pending
Glucose 255 H 257 H Pending
Calcium 8.3 L 8.1 L Pending
07/06/24 07/06/24 07/06/24
12:00 16:00 20:00
WBC
Hgb
Hct
Plt Count
Sodium Pending Pending Pending
Potassium Pending Pending Pending
Chloride Pending Pending Pending
Carbon Dioxide Pending Pending Pending
BUN Pending Pending Pending
Creatinine Pending Pending Pending
Glucose Pending Pending Pending
Calcium Pending Pending Pending
Vital Signs:
Vital Signs
Temp Pulse Resp BP Pulse Ox
99.5 F 119 30 135/79 96
07/06/24 12:00 07/06/24 11:00 07/06/24 11:00 07/06/24 10:20 07/06/24 10:00
I&O
07/05/24 07/06/24 07/07/24
06:59 06:59 06:59
Intake Total 4048.7 / 4200.7 3671 / 3824 1003 / 1003
Output Total 1575 / 2225 2725 / 3275 950 / 950
Balance 2473.7 / 1975.7 946 / 549 53 / 53
--- NOTE | 2024-07-06 13:21 | PTCARENOTE ---
Home Care Aide Juan F and mother here, patient remains calm, VS noted. resting in bed. SQ insulin coverage. med rec obtained, see notes. Dr. Dykes aware.
[2024-07-06] MEDS: ZOLOFT 100 MG PO (15:17)
--- NOTE | 2024-07-06 15:39 | PTCARENOTE ---
napped, awake now, took meds easily. ambulating unit on tele monitor. Dr. Dykes updated, glucose obtained unscheduled at MD request. no distress. visitor bedside.
[2024-07-06 15:43] LABS: Glucose - Point of Care 134 mg/dl (70-99)
[2024-07-06] MEDS: NOVOLOG FLEXPEN-MODERATE RESISTANCE SC (15:58)
[2024-07-06 16:08] LABS: Glucose - Point of Care 113 mg/dl (70-99)
[2024-07-06] MEDS: LOVENOX 40 MG SC (17:28)
[2024-07-06] MEDS: NON-FORMULARY ITEM 3 MG PO (20:08)
--- NOTE | 2024-07-06 20:23 | PTCARENOTE ---
Rec'd pt sitting on chair, amb ad abeba in room, Sinus tach, + pulses, skin warm/dry, RA, lungs clear, sat 99, + bowel sounds, no bm, abd obese, no n/v, kimmy diet, voiding w/o difficulty
[2024-07-06] MEDS: LANTUS 0.8 UNITS SC (21:40)
[2024-07-06 21:51] LABS: Glucose - Point of Care 121 mg/dl (70-99)
[2024-07-07 02:54] VITALS: BP 133/83
[2024-07-07 02:57] VITALS: BMI 32.0
[2024-07-07 03:03] LABS: Glucose - Point of Care 147 mg/dl (70-99)
[2024-07-07 03:14] LABS: % Basophils 0.7 % (0-2); % Eosinophils 0.2 % (0-6); % Immature Granulocytes 0.2 % (0-0.5); % Lymphocytes 40.4 % (20.5-51.1); % Monocytes 9.8 % (1.7-9.3); % Neutrophils 48.7 % (42.2-75.2); Absolute Lymphocytes 2.4 10^3/uL (1.2-3.4); Absolute Monocytes 0.6 10^3/uL (0.1-0.6); Absolute Neutrophils 2.9 10^3/uL (1.4-6.5); Hematocrit 38.8 % (39.0-52.0); Hemoglobin 12.8 g/dL (13.0-18.0); Mean Corpuscular Hgb 27.4 pg (27.0-31.0); Mean Corpuscular Volume 82.9 fL (80.0-94.0); Mean Platelet Volume 9.5 fL (7.4-10.4); Nucleated Red Blood Cells % 0 % (-); Platelet Count 204 10^3/uL (130-400); Red Blood Cell Count 4.68 10^6/uL (4.70-6.10); Red Cell Dist. Width 13.5 % (11.5-14.5); White Blood Cell Count 5.9 10^3/uL (4.8-10.8)
[2024-07-07 03:48] LABS: Blood Urea Nitrogen 10 mg/dl (9-20); Carbon Dioxide 24 mmol/L (22-30); Chloride 113 mmol/L (98-107); Estimated Creatinine Clearance > 125 ml/min; Glucose 129 mg/dl (70-99); Magnesium 1.7 mg/dl (1.6-2.3); Potassium 2.6 mmol/L (3.5-5.1); Sodium 141 mmol/L (135-145); eGFR > 60.00
--- NOTE | 2024-07-07 03:52 | PTCARENOTE ---
Jorge Soto NP aware of critical Calcium & Potassium, orders recd
[2024-07-07] MEDS: KCL 40 MEQ PO (04:35)
--- NOTE | 2024-07-07 04:35 | PTCARENOTE ---
40 meq kcl po given per order
[2024-07-07] MEDS: CALCIUM GLUCONATE 100 IV (04:51)
--- NOTE | 2024-07-07 04:51 | PTCARENOTE ---
2 gm nestor gluconate hung over 1 hr per order
[2024-07-07 07:39] LABS: Glucose - Point of Care 139 mg/dl (70-99)
--- NOTE | 2024-07-07 07:43 | W.PN.INTV ---
Today's Communication / Plan
Recommendations
Discontinue insulin drip
Increase diet
Decrease IV fluids
Increase activity
Transfer out of ICU-call pulmonary if respiratory issues arise
Assessment
-
23-year-old male with previous history of type 1 diabetes, mood disorder, obesity presenting with vomiting for the past 6 days. He notes that he had been running on low supply of insulin and had been using half of what he should be taking. He
normally takes 100 units of Lantus with 25 units of Humalog with meals. He was recently released from residential and has been living in a hotel.
He had previously been managed with an insulin pump but is no longer using this. He follows with Dr. Roa for his diabetes management. Direct Marketing Intern consulted 07/05/2024
DKA 2/2 med noncompliance/lack of access
Recent incarceration
Vomiting
AGMA
Leukocytosis
ANDREY, peak 2.4 (BL 0.7)
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
DKA adm DH 09/2022 + Adm DH 08/2022
T1DM, on insulin pump
Obesity
Depression
Cognitive impairment
Nonsmoker
Plan
Improved from an endocrine perspective
Supplemental oxygen as needed-on room air
Incentive spirometry
Continue to follow blood sugar
Monitor anion gap-closed
Insulin drip can be changed to subcutaneous
A1c-9.8
Diabetic nurse practitioner consultation noted-reviewed with them-appreciate input
Decrease IV fluids
Replace electrolytes including potassium and magnesium
ANDREY resolved
Cultures reviewed
Influenza negative
DVT prophylaxis-on Lovenox
Diabetic diet
Increase activity
If able to come off insulin drip then transfer out of ICU-call pulmonary if respiratory issues arise
Reviewed the patient's pertinent medical records including radiographs, microbiology, laboratory evaluations, and discussion with primary team, consultants, charge nurse, and critical care nursing.
Diagnostic Data
CXR 07/04/24- No evidence of active cardiopulmonary disease.
CXR 10-12-22: no comparison films. Portable, no infiltrates
US abd 09-19-22 IMPRESSION: Hepatic fatty infiltration. Mild hepatomegaly. Nonvisualization of the pancreas.
Reports and relevant images were personally reviewed.
Subjective Dataa
Subjective Data
Date of Service:
Date of Service: July 07, 2024
Chief Complaint: Direct Marketing Intern Follow Up and Pulmonary Follow Up
Subjective:
No complaints of shortness of breath, chest pain or abdominal pain, hungry
Review of Systems
General: Other (Per HPI)
Objective Data
Data Reviewed
Vital Signs / I&O / Oxygen:
Vital Signs
Temp Pulse Resp BP Pulse Ox
100.5 F H 90 18 133/83 98
07/07/24 02:57 07/07/24 06:00 07/07/24 02:57 07/07/24 02:54 07/06/24 20:05
Intake and Output
07/06/24 07/07/24 07/08/24
06:59 06:59 06:59
Intake Total 3671 / 3824 2103 / 2103
Output Total 2725 / 3275 1150 / 1150
Balance 946 / 549 953 / 953
SaO2 98
Nasal Cannula flow liters per 2
minute
Physical Exam
General: Respiratory Distress (n) and Comfortable
HEENT: Normocephalic, Anicteric and Moist Mucous Membranes
Cardiovascular: Regular Rhythm
Respiratory: Wheeze (n), Crackles (n), Rhonchi (n), Non-Labored Respirations, Accessory Resp Muscle Use (n) and Stridor (n)
GI: Soft, Non Distended and Non Tender
Neurology: Awake, Alert and No Motor Deficits
Skin: Warm, Good Color, Cyanosis (n), Jaundice (n) and Rash (n)
Labs/Micro/Reports
Lab Data
07/07/24 02:55
07/07/24 02:55
Microbiology
07/04/24 19:50 Nasal Swab Influenza Types A & B (DAVID) - Final
Negative for Influenza A & B, NAAT
Negative results must be combined with clinical observations
and patient history.
Nucleic Acid Amplification test (NAAT)performed on the
[employer] platform.
--- NOTE | 2024-07-07 08:10 | PN.DE.MGMTRT ---
Insulin Management
- -
07/07/2024: Diabetes Management Consult Follow up
23 year old male p/w vomiting x 6 days, admitted with DKA. Known to Diabetes team from prior admissions due to DKA adm 09/2022 + Adm 08/2022
PMH: Depression, obesity and T1DM since age 12. Reports he was recently incarcerated and that his insulin was discarded when he got to intermediate. 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
He normally takes 100 units of Lantus with 25-30 units of Humalog with meals and follows with Dr. Roa for his diabetes management.
He had previously been managed with an insulin pump but is no longer using this, has been on SQ insulin for about a year. Cr 2.0, eGFR 41.6, A1C 9.3%.
Pt awake, alert, oriented, sitting up in bed, able to discuss diabetes management, family at bedside.
Transitioned from IV insulin to subcutaneous insulin 07/06
Received AC NovoLog 20 units and moderate corrective, and lantus 80 units @ hs. Fasting glucose 07/07 139.
Will cont to follow and adjust insulin dose if necessary.
Rx for test strips and insulin- added to ambulatory orders
Diabetes History
- -
Type of Diabetes: 1
Pre-Admission Diabetes Regimen
07/06/24 07/06/24 07/06/24
09:50 10:18 12:00
Creatinine 0.7 Cancelled Cancelled
07/06/24 07/06/24 07/07/24
16:00 20:00 02:55
Creatinine Cancelled Cancelled 0.5 L
Lab Results
Hemoglobin A1c 9.3 % (4.0-5.6) H 07/04/24 20:54
Insulin Pump Settings
IP Diabetes Regimen
07/06/24 07/06/24 07/06/24
09:00 09:49 09:50
Glucose 257 H
POC Glucose 192 H 227 H
07/06/24 07/06/24 07/06/24
10:18 10:55 12:00
Glucose Cancelled Cancelled
POC Glucose 260 H
07/06/24 07/06/24 07/06/24
12:09 15:31 15:56
Glucose
POC Glucose 305 H 134 H 113 H
07/06/24 07/06/24 07/06/24
16:00 20:00 21:40
Glucose Cancelled Cancelled
POC Glucose 121 H
07/07/24 07/07/24 07/07/24
02:52 02:55 07:29
Glucose 129 H
POC Glucose 147 H 139 H
Meal type: Dinner
Meal type: Dinner
Meal type: Lunch
Amount consumed: 100%
Amount consumed: 100%
Patient Education
[2024-07-07] MEDS: NOVOLOG FLEXPEN-MODERATE RESISTANCE SC (08:11)
[2024-07-07] MEDS: NOVOLOG FLEXPEN SC (08:11)
[2024-07-07 08:32] VITALS: BP 131/74
--- NOTE | 2024-07-07 09:06 | PTCARENOTE ---
did not eat breakfast, 'I'm not hungry, I can't eat'. labs sent
[2024-07-07 09:23] LABS: Blood Urea Nitrogen 13 mg/dl (9-20); Calcium 8.6 mg/dl (8.4-10.2); Carbon Dioxide 30 mmol/L (22-30); Chloride 101 mmol/L (98-107); Estimated Creatinine Clearance > 125 ml/min; Glucose 263 mg/dl (70-99); Potassium 3.8 mmol/L (3.5-5.1); Sodium 137 mmol/L (135-145); eGFR > 60.00
[2024-07-07] MEDS: MAGNESIUM SULFATE 102 GRAMS IV (09:37)
[2024-07-07] MEDS: ABILIFY 15 MG PO (09:37)
[2024-07-07] MEDS: ZOLOFT 100 MG PO (09:38)
--- NOTE | 2024-07-07 09:51 | PN.CDI ---
CDI
- -
CDI:
Physician Documentation Request
Admit Date: 07/04/24 21:12
Dear Doctor Donis,
Please review the following and provide your response in the progress notes.
Clinical Indicators:
- Patient admit for DKA
- 07/06 PN 'severe acidosis/bicarb less than 5, associated metabolic derangement of hyponatremia/hyper-K'
- 'ANDREY'
- 8L IVF given
- On admission: WBC 19.4, HR 1130-140s, RR 20-30s
Please clarify which most accurately describes the patient:
SIRS due to a non-infectious source, DKA, with associated organ dysfunction, ANDREY
SIRS due to a non-infectious source, DKA without associated organ dysfunction
Other (please specify)
Use of terms such as suspected, likely, concern for, or probable (associated with a specific diagnosis that is being evaluated, monitored, or treated as if it exists) are acceptable and can be coded in the inpatient setting, when documented at the
time of discharge.
Thank you,
Amara Bush RN
CDI Specialist
Please use your independent medical judgment in providing your response.
--- NOTE | 2024-07-07 11:08 | W.PN.HOSP.TC ---
Today's Communication/Plan
-
Monitor vital signs see plan
Repeat electrolytes much improved
Patient is currently feeling better, discharge today
Time of discharge 37 minutes
Assessment / Plan
Assessment / Plan
DKA
-Patient was rationing insulin due to unable to get regular dose and non compliance
-Hemoglobin A1c of 9.8% sep 23. Repeat A1c 9.3
-Patient came in with severe acidosis/bicarb less than 5, associated metabolic derangement of hyponatremia/hyper-K
Status post insulin drip, now on subcu insulin. Tolerating diet.
Diabetes OVENS SUPERVISOR following
SIRS due to a non-infectious source, DKA, with associated organ dysfunction, ANDREY
ANDREY
resolved
-Secondary to volume depletion
-Admission creatinine 2.5 rapidly improving and now resolved
-Continue monitoring
Hypokalemia
Repleted
Hypocalcemia
Repleted
Leukocytosis
-UA/chest x-ray clear. No wound
-Patient is afebrile
-Likely reactive monitor off of antibiotic
History of mood disorder
Obesity
on cariprazine; aripiprazole and sertraline
DVT PPX - Heparin subq
Full code
General: No Apparent Distress and Comfortable
HEENT: Negative Oxygen
Respiratory: Clear to Auscultation
Cardiac: Regular Rhythm, S1/S2 and Tachycardic; Negative Murmur or Rub
Neuro: Awake, Alert, Oriented and Nonfocal/Grossly Intact
Psych: Calm
Anticipated Discharge: Today
Subjective/Interval History
-
Date of Service: July 07, 2024
Denies pain
Objective Data
-
Labs:
Laboratory Results
07/07/24 07/07/24
02:55 09:00
WBC 5.9
Hgb 12.8 L
Hct 38.8 L
Plt Count 204
Sodium 141 137
Potassium 2.6 L* D 3.8 D
Chloride 113 H 101
Carbon Dioxide 24 30
BUN 10 13
Creatinine 0.5 L 0.6 L
Glucose 129 H 263 H
Calcium 6.0 L* D 8.6 D
Vital Signs:
Vital Signs
Temp Pulse Resp BP Pulse Ox
98.8 F 104 18 131/74 98
07/07/24 08:00 07/07/24 08:32 07/07/24 02:57 07/07/24 08:32 07/07/24 08:45
I&O
07/06/24 07/07/24 07/08/24
06:59 06:59 06:59
Intake Total 3671 / 3824 2103 / 2103 340 / 340
Output Total 2725 / 3275 1150 / 1150
Balance 946 / 549 953 / 953 340 / 340
--- NOTE | 2024-07-07 11:10 | W.PN.INTV ---
Documented by User: Ernst Haji MD, Resident 07/07/24 12:17
Today's Communication / Plan
Recommendations
Can be downgraded to [employer]
Monitor BSR
Plan discharge
Assessment
-
Impression
Patient is a 23-year-old male with Past medical history of type 1 diabetes, mood disorder, obesity admitted with diabetic ketoacidosis secondary to availability issues of insulin.Non.smoker,occasional vaping in past.Anion gap closed,started on low
carb diet and shifted to subcutaneous insulin 80 units of lantus in evening and 20 units aspart AC.
Assessment
DKA secondary to medication non-compliance/lack of access
Recently released from long-term
Anion gap metabolic acidosis
Leukocytosis-resolved
Acute kidney injury-resolved
Other medical conditions
DKA prior admission in 2022 to [facility] for DKA in 2022
[id number](,9.8,This admission on 07/04/24-9.3%)
Increased BMI(31.4)
Mood disorder-takes aripiprazole and sertaline, continue as able
Plan
DKA secondary to medication non-compliance/lack of access
Admitted with BSR of 1065,Anion gap of 36
Gap closed,on subcutaneous insulin
Tolerating low carb diet
HbA1c of 9.3 this admission suggests poor control,apprec diabetic nurse practitioner consult-started on 50 u s/c Lantus and 20 units aspart AC
Diabetic nurse practitioner helping with the blood sugar control
As per sample case porter D/C plan: return back to his temporary living arrangement at [facility] and to follow up with [facility] support program for housing. Pt stated his poultry service technician Juan F will transport at discharge.
Awake,alert
No prior history of cardiac disease,tachycardic,telemetry rythm shows sinus tachycardia
Oxygen needs: Stable on RA with no prior pulmonary issues
On low carb diet,Lfts within normal limits,No GI prophylaxis
ANDREY resolved
Total [id number] mL
Total Msmpsw620 mL
Xdzzktx4403 mL
On Enoxaprin for DVT prophylaxis
HbA1c 9.3,Adjusting insulin for discharge as advised by the diabetic nurse practitioner
No source of infection identified,chest x-ray,U/A,negative,antibiotics were discontinued,remained afebrile,reactive leukocytosis -self resolved
DVT ppx -Enoxaprin
Full code
Subjective Dataa
Subjective Data
Date of Service:
Date of Service: July 07, 2024
Chief Complaint: Shower Attendant Follow Up and Pulmonary Follow Up
Subjective:
Patient reports no active issues,blood sugar 139 in the morning,no insulin given,ate dinner but had no apetite in the morning
Review of Systems
General: Other (Denied any fever, abdominal pain, chest pain palpitations, burning micturation, body aches, or any other complains on systemic review)
Objective Data
Data Reviewed
Vital Signs / I&O / Oxygen:
Vital Signs
Temp Pulse Resp BP Pulse Ox
98.8 F 104 18 131/74 98
07/07/24 08:00 07/07/24 08:32 07/07/24 02:57 07/07/24 08:32 07/07/24 08:45
Intake and Output
07/06/24 07/07/24 07/08/24
06:59 06:59 06:59
Intake Total 3671 / 3824 2103 / 2103 340 / 340
Output Total 2725 / 3275 1150 / 1150
Balance 946 / 549 953 / 953 340 / 340
SaO2 98
Nasal Cannula flow liters per 2
minute
Physical Exam
General: Comfortable and Good Appetite
HEENT: Normocephalic, Anicteric and Moist Mucous Membranes
Cardiovascular: S1-S2 and Regular Rhythm
Respiratory: Clear and Non-Labored Respirations
GI: Soft, Non Distended and Non Tender
Neurology: Awake, Alert and No Motor Deficits
Skin: Warm and Good Color
Labs/Micro/Reports
Lab Data
07/07/24 02:55
07/07/24 09:00
Microbiology
07/04/24 19:50 Nasal Swab Influenza Types A & B (DAVID) - Final
Negative for Influenza A & B, NAAT
Negative results must be combined with clinical observations
and patient history.
Nucleic Acid Amplification test (NAAT)performed on the
[employer] platform.

Documented by User: Luis Sullivan MD 07/07/24 12:23
Assessment
-
Impression
Patient is a 23-year-old male with Past medical history of type 1 diabetes, mood disorder, obesity admitted with diabetic ketoacidosis secondary to availability issues of insulin.Non.smoker,occasional vaping in past.Anion gap closed,started on low
carb diet and shifted to subcutaneous insulin 80 units of lantus in evening and 20 units aspart AC.
Assessment
DKA secondary to medication non-compliance/lack of access
Recently released from long-term
Anion gap metabolic acidosis
Leukocytosis-resolved
Acute kidney injury-resolved
Other medical conditions
DKA prior admission in 2022 to [facility] for DKA in 2022
[id number](,9.8,This admission on 07/04/24-9.3%)
Increased BMI(31.4)
Mood disorder-takes aripiprazole and sertaline, continue as able
Plan
DKA secondary to medication non-compliance/lack of access
Admitted with BSR of 1065,Anion gap of 36
Gap closed,on subcutaneous insulin
Tolerating low carb diet
HbA1c of 9.3 this admission suggests poor control,apprec diabetic nurse practitioner consult-started on 50 u s/c Lantus and 20 units aspart AC
Diabetic nurse practitioner helping with the blood sugar control
As per sample case porter D/C plan: return back to his temporary living arrangement at [facility] and to follow up with [facility] for housing. Pt stated his poultry service technician Juan F will transport at discharge.
Awake,alert
No prior history of cardiac disease,tachycardic,telemetry rythm shows sinus tachycardia
Oxygen needs: Stable on RA with no prior pulmonary issues
On low carb diet,Lfts within normal limits,No GI prophylaxis
ANDREY resolved
Total Gczaab5579 mL
Total Ffxizr115 mL
Hulotyh2642 mL
On Enoxaprin for DVT prophylaxis
HbA1c 9.3,Adjusting insulin for discharge as advised by the diabetic nurse practitioner
No source of infection identified,chest x-ray,U/A,negative,antibiotics were discontinued,remained afebrile,reactive leukocytosis -self resolved
DVT ppx -Enoxaprin
Full code
I reviewed this patients case independently and in conjunction with the resident. I personally examined the patient. Patient's complex medical history, laboratory evaluations, events over the last 24 hours, radiographs, microbiological data were
all personally reviewed.
Agree with documented assessment and plan
Reviewed the patient's pertinent medical records including radiographs, microbiology, laboratory evaluations, and discussion with primary team, consultants, pharmacy, charge nurse, critical care nursing, and respiratory therapy.
Luis Sullivan MD, FCCP, DAB
[2024-07-07 11:19] VITALS: BP 144/98
--- NOTE | 2024-07-07 11:21 | W.DCSUMMARY ---
Discharge Summary
Discharge Data
Date of Admission: 07/04/24
Date of Discharge: 07/07/24
-
Pending Results: No
Hospital Course
23-year-old male with past medical history of diabetes, mood disorder, obesity came to the hospital with diabetic ketoacidosis secondary to medication noncompliance and lack of access to his insulin. He was initially transferred to the ICU on
insulin drip. His symptoms continue to improve with aggressive IV fluid resuscitation. Over time his anion gap closed and he was transitioned to subcutaneous insulin. Once his symptoms continue to improve, he was then discharged home with
instructions to follow-up with all his physicians outpatient.
Discharge Plan
-
Patient Disposition: Home (Routine Discharge)
Discharge Diagnosis/Procedures: Diabetic ketoacidosis
Acute kidney injury
Hypokalemia
Hypocalcemia
Diet: Diabetic, Carb Controlled
Activity: As tolerated
Driving Restrictions: As prior to admission
Bathing Restrictions: None
Referrals:
Aidan Roberto MD [Family Provider] - in less than 1 week
Prescriptions:
New
(DME) OneTouch Verio test strips Strip
Qty: 130 0RF
Rx Instructions:
Pt testing 4 times a day
insulin glargine 100 unit/mL (3 mL) insulin pen
100 unit SC QPM Qty: 15 2RF
Continued
sertraline 100 mg tablet
100 mg PO DAILY@1100
aripiprazole 15 mg tablet
15 mg PO DAILY@1100
Vraylar 6 mg Capsule
3 mg PO DAILY
Patient Comments:
3 mg capsules, patients own med card with press through tablets, 3 mg, first 8 capsules have already been activated/pushed through. per case mgr Juan F.
Changed
insulin aspart U-100 [Novolog FlexPen U-100 Insulin] 100 unit/mL (3 mL) Insulin Pen
20 - 30 sliding scale dose SC DIRECTED 30 Days Qty: 5 0RF
Rx Instructions:
Take before each meal
Discontinued
insulin glargine [Semglee Pen U-100 Insulin] 100 unit/mL (3 mL) Insulin Pen
100 unit SC DAILY
Discharge Orders:
Discharge Patient (As Directed); Ordered 07/07/24
Ordered By: Jay Jay Dykes
Discharge Date and Time
Discharge Date/Time: 07/07/24 13:12
Print Language: GRENADIAN
[2024-07-07] MEDS: NOVOLOG FLEXPEN-MODERATE RESISTANCE 3 UNITS SC (11:29)
[2024-07-07] MEDS: NOVOLOG FLEXPEN 20 UNITS SC (11:29)
[2024-07-07 11:38] LABS: Glucose - Point of Care 217 mg/dl (70-99)
--- NOTE | 2024-07-07 11:40 | CM ---
CM following re: discharge planning.
Reviewed pt's chart, met with pt.
Discharge order noted. Pt is aware.
CM spoke to pt's coordinator Juan F from [facility] support [facility] [phone] and he stated he is coming to transport pt to [facility] stay [facility] where pt will stay till next Saturday and then pt will be placed to a rented [facility].
No after care VN services indicated
D/C plan: return back to his living arrangements at [facility]. nurse coordinator Juan F to transport.
--- NOTE | 2024-07-07 13:04 | PTCARENOTE ---
Addendum entered by Marry Flores RN 07/07/24 13:10:
pharmacy added, hospitalist to transmit
Original Note:
patient discharge instructions reviewed with patient correctional case records supervisor Juan F. major case detective Juan F requests medication prescriptions be sent to the agency contracted pharmacy [facility]:phone [phone]. fax [phone]. [facility]
[place] [id number]. novolog pen/ diagnostic test strips. tiger text to both hospitalist as well as staff educator to inform.
== END 2024-07-07 13:12 | disposition home or self-care (01) | DRG 637 ==
LOC: ICU 21:12
PROVIDERS: Family Medicine; Hospitalist; Nurse Practitioner Acute Care; Nurse Practitioner Family; ADMITTING PHYSICIAN Hospitalist; ATTENDING PHYSICIAN Internal Medicine; CONSULT PHYSICIAN Internal Medicine; EMERGENCY PHYSICIAN Emergency Medicine; FAMILY PHYSICIAN Internal Medicine
DX: E10.10 Type 1 diabetes mellitus with ketoacidosis without coma (principal); R65.11 Systemic inflammatory response syndrome (SIRS) of non-infectious origin with acute organ dysfunction; N17.9 Acute kidney failure, unspecified; Z59.01 Sheltered homelessness; Z11.52 Encounter for screening for COVID-19; Z91.148 Patient's other noncompliance with medication regimen for other reason; Z79.4 Long term (current) use of insulin; Z96.41 Presence of insulin pump (external) (internal); E66.9 Obesity, unspecified; F32.A Depression, unspecified; E87.6 Hypokalemia; E83.51 Hypocalcemia; Z68.32 Body mass index [BMI] 32.0-32.9, adult
CPT/HCPCS: 71045; 80048; 80053; 81003; 82010; 82805; 82947; 82962; 83036; 83735; 84100; 85025; 85027; 85610; 85730; 87502; 87811; 93005; 96365; 99291

== ENCOUNTER 2024-09-07 08:36 | Inpatient (IN) | payer BC, MEDICAID, OTHER, SELFPAY ==
[2024-09-05 22:13] VITALS: BP 131/75
[2024-09-05 22:15] LABS: Glucose - Point of Care 549 mg/dl (70-99)
[2024-09-05 22:19] LABS: Venous Blood Gas B.E. 2.9 mmol/L (-4 to +4); Venous Blood Gas HCO3 27.9 mmol/L (22-27); Venous Blood Gas O2 Sat % 99.8 %; Venous Blood Gas pCO2 43 mmHg (35-48); Venous Blood Gas pH 7.42 (7.32-7.43); Venous Blood Gas pO2 113 mmHg (30-50)
[2024-09-05 22:20] LABS: % Basophils 0.7 % (0-2); % Eosinophils 0.8 % (0-6); % Immature Granulocytes 0.5 % (0-0.5); % Lymphocytes 37.4 % (20.5-51.1); % Monocytes 8.4 % (1.7-9.3); % Neutrophils 52.2 % (42.2-75.2); Absolute Basophils 0.1 10^3/uL (0-0.2); Absolute Eosinophils 0.1 10^3/uL (0-0.7); Absolute Lymphocytes 2.8 10^3/uL (1.2-3.4); Absolute Monocytes 0.6 10^3/uL (0.1-0.6); Absolute Neutrophils 3.9 10^3/uL (1.4-6.5); Hematocrit 41.1 % (39.0-52.0); Hemoglobin 14.3 g/dL (13.0-18.0); Mean Corp Hgb Conc. 34.8 g/dL (33.0-37.0); Mean Corpuscular Hgb 28.1 pg (27.0-31.0); Mean Corpuscular Volume 80.7 fL (80.0-94.0); Nucleated Red Blood Cells % 0 % (-); Platelet Count 271 10^3/uL (130-400); Red Blood Cell Count 5.09 10^6/uL (4.70-6.10); Red Cell Dist. Width 13.2 % (11.5-14.5); White Blood Cell Count 7.5 10^3/uL (4.8-10.8)
[2024-09-05 22:42] LABS: ALT (SGPT) 35 U/L (0-50); AST (SGOT) 20 U/L (17-59); Albumin 4.2 g/dl (3.5-5.0); Alkaline Phosphatase 118 U/L (38-126); Blood Urea Nitrogen 16 mg/dl (9-20); Calcium 9.3 mg/dl (8.4-10.2); Carbon Dioxide 26 mmol/L (22-30); Chloride 93 mmol/L (98-107); Potassium 4.2 mmol/L (3.5-5.1); Sodium 129 mmol/L (135-145); Total Bilirubin 2.1 mg/dl (0.2-1.3); eGFR > 60.00
[2024-09-05 22:52] LABS: Glucose 620 mg/dl (70-99)
[2024-09-05 23:00] VITALS: BP 123/80
--- NOTE | 2024-09-05 23:26 | ED.GENMED ---
History of Present Illness
General
Chief Complaint: Blood Sugar Problem
Source: patient and other (veterinary surgery technician)
Exam Limitations: none
Time Seen by Provider: 09/05/24 23:22
Nursing documentation reviewed up to this point in time: agreed with
History of Present Illness
History of Present Illness:
24-year-old male presents emergency department due to high blood sugar. He was given 14 units of insulin by correction nurse. He has been at correction for the past 5 days. He states they switched his insulin from the morning to evening, and the Lantus
in the morning.
Past History
Past History
ED Past Medical History: IDDM and Psychiatric (Anxiety, depression, cognitive disability)
ED Past Surgical History: None
Social History
Tobacco: Non-smoker
Alcohol: None
Drug: None
Personal: Single
Living: correction
Employment: Not employed
Review of Systems
Review of Systems
Allergies reviewed?: Yes
All Other Systems: Not applicable
Constitutional: Reports no symptoms
EENT: Reports no symptoms
Respiratory: Reports no symptoms
Cardiac: Reports no symptoms
ABD/GI: Reports no symptoms
: Reports no symptoms
Musculoskeletal: Reports no symptoms
Skin: Reports no symptoms
Neurological: Reports no symptoms
Endocrine: Reports polyuria
Hematologic/Lymphatic: Reports no symptoms
Psychiatric: Reports no symptoms
Phy Exam
Physical Exam
Physical Exam:
Physical Exam
General: no apparent distress, not acutely ill
Neck: supple. no meningeal signs. normal posterior pharynx
Heart: s1/s2 regular rate and rhythm, no murmur. equal radial
pulses.
HEENT: Pupils equal round reactive to light, EOMI
Lungs: no acute respiratory distress. clear bilaterally
Abdomen: normal bowel sounds. not tender. no CVAT
Neuro: alert and oriented. no focal neurological deficits cranial nerves II through XII intact
Skin: no rash
Psychiatric: well kept. interactive and cooperative
Extremities: no edema. no calf tenderness. negative homans. good distal pulses
Course
Orders/Labs/Results
Orders:
Orders
09/05/24 22:13
Complete Blood Count/With Diff Urgent
Comprehensive Metabolic Panel Urgent
Venous Blood Gas Urgent
%Oxygen/Room Air: 94
09/05/24 23:23
IV Insert/Care/Rem.- Treatment PRN
0.9% Sodium Chloride 1000 ml [Nss] 1,000 ml IV BOLUS
09/05/24 23:25
Insulin Human Regular [Novolin R] 10 units IV NOW STA
09/05/24 23:26
Bedside Glucose- Treatment Q1H
09/05/24 23:44
Basic Metabolic Panel Q2H
09/06/24 01:14
Bedside Glucose- Treatment Q1H
IV Insert/Care/Rem.- Treatment PRN
09/06/24 01:15
Basic Metabolic Panel Q2H
09/06/24 01:19
Reg Insulin 100 Units/100 ml [Novolin R Insulin Infusion] 100 units in 100 ml IV NOW
09/06/24 01:30
Basic Metabolic Panel Q2H
09/06/24 01:45
0.9% Sodium Chloride 1000 ml [Nss] 1,000 ml IV 150 mls/hr
09/06/24 02:00
Flush (0.9% Sodium Chloride) [Flush (Nss)] See Dose Instructions IV PER PROTOCOL
09/06/24 03:15
Basic Metabolic Panel Q2H
09/06/24 03:30
Basic Metabolic Panel Q2H
09/06/24 05:15
Basic Metabolic Panel Q2H
Abnormal Lab Results
09/05/24 09/05/24
22:13 23:44
VBG pO2 113 H mmHg
(30-50)
VBG HCO3 27.9 H mmol/L
(22-27)
Sodium 129 L mmol/L 132 L mmol/L
(135-145) (135-145)
Chloride 93 L mmol/L 96 L mmol/L
(98-107) (98-107)
Glucose 620 H* mg/dl 459 H* mg/dl
(70-99) (70-99)
Total Bilirubin 2.1 H mg/dl
(0.2-1.3)
POC Glucose 549 H* mg/dl
(70-99)
09/05/24 22:13
Vital Signs
Initial and Last Documented VS:
Initial Vital Signs
Pulse Pulse Ox
93 94
09/05/24 22:12 09/05/24 22:12
Last Documented Vital Signs
Temp Pulse Resp BP Pulse Ox
98.2 F 85 25 131/87 95
09/05/24 22:13 09/06/24 00:15 09/06/24 00:15 09/06/24 00:00 09/06/24 00:15
MDM/Problems Addressed
Differential Diagnosis Includes:
DKA
MDM/Problems Addressed:
24-year-old male with uncontrolled diabetic hyperglycemia. IV insulin given. No signs of DKA at this time. Admit to hospitalist for further glucose control.
Chronic conditions affecting care: DM
Acute Exacerbation and/or Progression of Chronic Illness: DM
*Pulse Oximetry
Patient hypoxic: no
*Critical Care Note
Total Time (30-74mins, 75-104mins- exclusive of procedures): 32
comment:
Critical care statement: A total of 32 minutes of critical care time was provided for this patient. This includes management of unstable vital signs, evaluation of the patient at bedside, reviewing the patient's pertinent medical records, discussion
with consultants, review of old EKGs and review of pertinent medical records. This time with separate from time utilized to perform the aforementioned documented procedures
Patient Management
Social determinants of health affecting care: Living situation
Discussion with other providers: Hospitalist and Alf staff
Escalation/DeEscalation of care consider admission/obs:
Admit indicated
ED Attending Note
-
Portions of this chart may have been created with voice recognition software.� Occasional wrong word or��sound alike� substitutions may have occurred due to the inherent limitations of voice recognition software.
Discharge Plan
Departure
Patient Disposition: Admit
Date of Disposition: 09/06/24
Time of Disposition: 01:17
Admit to: IMU
Presentation/result/management discussed w/ accepting MD/DO: Hospitalist
Patient with high blood pressure during this ER visit?: Yes
Condition: Fair
Discharge Problem:
Diabetes mellitus with hyperglycemia
Prescriptions:
No Action
sertraline 100 mg tablet
100 mg PO DAILY@1100
aripiprazole 15 mg tablet
15 mg PO DAILY@1100
Vraylar 6 mg Capsule
3 mg PO DAILY
Patient Comments:
3 mg capsules, patients own med card with press through tablets, 3 mg, first 8 capsules have already been activated/pushed through. per case filler Juan F.
(DME) OneTouch Verio test strips Strip
Qty: 130 0RF
Rx Instructions:
Pt testing 4 times a day
insulin aspart U-100 [Novolog FlexPen U-100 Insulin] 100 unit/mL (3 mL) Insulin Pen
20 - 30 sliding scale dose SC DIRECTED 30 Days Qty: 5 0RF
Rx Instructions:
Take before each meal
insulin glargine 100 unit/mL (3 mL) insulin pen
100 unit SC QPM Qty: 15 2RF
Referrals:
[facility] [Family Provider] -
Interventions
Interventions:
*Risk Screen - Suicide Last Done: 09/05/24 22:13
*General Assessment Last Done: 09/05/24 22:13
*Neglect/Abuse Screening Last Done: 09/05/24 22:13
*ED- Fall Risk Assessment Last Done: 09/05/24 22:13
*ED COVID-19 Vaccine History Last Done: 09/05/24 22:13
ED- Neurological Assessment Last Done: 09/05/24 22:16
Discharge Date and Time
Print Language: NIGERIEN
[2024-09-05] MEDS: NOVOLIN R 10 UNITS IV (23:49)
[2024-09-05] MEDS: NSS 1000 IV (23:51)
[2024-09-06] VITALS (9 sets, daily range): BP systolic 124–147; BP diastolic 83–92; BMI 30.2
[2024-09-06 00:45] LABS: Blood Urea Nitrogen 16 mg/dl (9-20); Calcium 9.2 mg/dl (8.4-10.2); Carbon Dioxide 26 mmol/L (22-30); Chloride 96 mmol/L (98-107); Glucose 459 mg/dl (70-99); Potassium 4.3 mmol/L (3.5-5.1); Sodium 132 mmol/L (135-145); eGFR > 60.00
--- NOTE | 2024-09-06 01:38 | HPS.HSE ---
Family Physician
-
Family Physician: Facility [facility]
Chief Complaint
-
Hyperglycemia
History of Present Illness
This is a 24-year-old with past medical history of insulin-dependent diabetes, mood disorder and depression who presents to the emergency department with hyperglycemia.
Patient was last hospitalized in June for DKA. At the time he was discharged on Lantus 100 in the mornings and NovoLog 25 units in the morning and 35 units in the evening.
Patient has been reminded to freezing since about 1 week ago and is to remain there till the beginning of September. He stated that while at present he has been getting only Lantus 6 units in the evening as a sliding scale. Over the last 1 week he
reports that his glucose has been rising to the 300s and 400s. Today it siddharth all the way to greater than 500 and he was sent to the emergency department. He reports having polyuria and polydipsia for the day. Denies any other medication changes.
He denies fever or chills. He denies any chest pain.
In the emergency department he was afebrile, blood pressure was 131/87 with a pulse of 83 and was satting 100% on room air. ABG showed 7.4 .
CBC was unremarkable. Electrolytes notable for sodium of 129 but otherwise unremarkable. BUN and creatinine were normal. Initial glucose was 620. After initial dose of insulin repeat glucose was 450.
Medical History
Past Medical History
Past Medical History: Reports Other ( type 1 diabetes, mood disorder, obesity,)
Past Surgical History: Reports None
Social History
Tobacco: Non-smoker
Alcohol: None
Drug: None
Family History
Family History: Not pertinent
Allergies / Home Medications
Allergies reflects when Allergies were last updated in [employer].
Home Medications with original date entered in [employer]
Allergy/Medication List:
Allergies
Allergy/AdvReac Type Severity Reaction Status Date / Time
No Known Allergies Allergy Unverified 09/18/22 14:06
Home Medications
aripiprazole 15 mg tablet 15 mg PO DAILY@1100 Mental Health/Anxiety 09/18/22
sertraline 100 mg tablet 100 mg PO DAILY@1100 Mental Health/Anxiety 09/18/22
cariprazine 6 mg capsule (Vraylar) 3 mg PO DAILY Mental Health/Anxiety 07/05/24
blood sugar diagnostic ([employer] Verio test strips) #130 ea 07/06/24
insulin aspart U-100 100 unit/mL (3 mL) subcutaneous pen (Novolog FlexPen U-100 Insulin aspart) 20 - 30 sliding scale dose SC DIRECTED Diabetes 30 days #5 ea 07/06/24
insulin glargine 100 unit/mL (3 mL) subcutaneous pen 100 unit SC QPM #15 mL 07/07/24
Review of Systems
-
History Source: Patient
Constitutional: Reports No Symptoms
EENT: Reports No Symptoms
Respiratory: Reports No Symptoms
Cardiac: Reports No Symptoms
Abdomen/GI: Reports No Symptoms
: Reports No Symptoms
Musculoskeletal: Reports No Symptoms
Skin: Reports No Symptoms
Neurological: Reports No Symptoms
Endocrine: Reports Polyuria and Polydipsia
Hematologic/Lymphatic: Reports No Symptoms
Psych: Reports No Symptoms
Physical Exam
Vital Signs
Vital Signs
Temp Pulse Resp BP Pulse Ox
98.2 F 85 25 131/87 95
09/05/24 22:13 09/06/24 00:15 09/06/24 00:15 09/06/24 00:00 09/06/24 00:15
Physical Exam
General: Well Developed, Well Nourished, No Apparent Distress and Comfortable
HEENT: NormoCephalic, Anicteric, Moist mucous membranes and Atraumatic
Respiratory: Clear
Cardiac: S1/S2 and Regular Rhythm
GI: Soft, Non Tender, Non Distended and Normal Bowel Sounds
Rectal: Deferred by Provider
Genito-urinary: Deferred by me
Musculoskeletal: No Clubbing, No Cyanosis and No Edema
Skin: Warm
Neuro: AO x 3 and Nonfocal/grossly intact
Psych: Calm
Laboratory Results
-
09/05/24 22:13
Laboratory Results
Total Bilirubin 2.1 mg/dl (0.2-1.3) H 09/05/24 22:13
AST 20 U/L (17-59) 09/05/24 22:13
ALT 35 U/L (0-50) 09/05/24 22:13
Alkaline Phosphatase 118 U/L (38-126) 09/05/24 22:13
Data Reviewed
-
Lab Data: Labs Reviewed by me
Old Records: Reviewed
Impression/Plan
-
IMPRESSION:
Patient with hyperglycemia without DKA. He was to be on a total of 160 units of insulin daily but has been only taking 6 units of Lantus since he has been imprisoned for about 1 week. He came in hyperglycemia to 620. Repeat glucose after 1 L of
normal saline and 10 units is 450. He is not markedly dehydrated. He does not have DKA on labs and he has a normal ABG.
PLAN:
Hyperglycemia -this is secondary to poor dosing of insulin. Patient has a high requirement of about 100 units of Lantus daily with a total of 60 units of NovoLog and he has only been receiving 6 units of insulin. He is hemodynamically stable. No
signs of acute infection.
- admit to med/surg
- continue IV NS at 150 ml/hr
- will give 5 units of regular now and start lantus 30 units tonight
- start lantus 50 units in am then continue novolog 25 units ac with sliding scale
discharge on his prior insulin regimen
DVT PPX - SCDs
Code status - Full code
[2024-09-06] MEDS: NSS 1000 IV ×3 (01:58→16:48)
[2024-09-06 02:05] LABS: Glucose - Point of Care 370 mg/dl (70-99)
[2024-09-06] MEDS: LANTUS 0.3 UNITS SC (02:10)
[2024-09-06 03:11] LABS: Glucose - Point of Care 344 mg/dl (70-99)
--- NOTE | 2024-09-06 04:00 | PTCARENOTE ---
Received patient from ED accompanied by 2 guards. Patient AAOx3, ambulated to the bedside with 1 assist. Patient assessed, VSS. Patient oriented to the unit.
[2024-09-06 05:56] LABS: Blood Urea Nitrogen 12 mg/dl (9-20); Calcium 8.8 mg/dl (8.4-10.2); Carbon Dioxide 28 mmol/L (22-30); Chloride 99 mmol/L (98-107); Estimated Creatinine Clearance > 125 ml/min; Glucose 348 mg/dl (70-99); Magnesium 1.8 mg/dl (1.6-2.3); Sodium 136 mmol/L (135-145); eGFR > 60.00
--- NOTE | 2024-09-06 06:18 | PTCARENOTE ---
Patient's venous Glucose this AM was 348. Advised covering provider. Will hold off treatment until morning accucheck.
[2024-09-06 07:11] LABS: Glucose - Point of Care 266 mg/dl (70-99)
[2024-09-06] MEDS: NOVOLOG FLEXPEN SC (09:23)
[2024-09-06] MEDS: NOVOLOG FLEXPEN-MODERATE RESISTANCE SC (09:23)
[2024-09-06] MEDS: ZOLOFT 100 MG PO (10:06)
[2024-09-06] MEDS: LANTUS 0.1 UNITS SC (10:06)
[2024-09-06] MEDS: ABILIFY 15 MG PO (10:06)
--- NOTE | 2024-09-06 11:54 | CM ---
Addendum entered by Emi Leija RN 09/06/24 11:58:
The patient is admitted under observational status. The observation letter was provided and explained. The patient had no questions with regards to the letter.
Original Note:
Reviewed the chart notes and spoke with the patient at the bedside. The patient is currently in [facility]. Prior to incarceration the patient resided alone in a first floor apartment with two steps to enter. The patient reports no DME/VN/SNF. CM
continues to be available to patient/family and is monitoring medical plan for needs at discharge.
Plan: Discharge back to the [facility] when medically stable. No additional needs identified at this time.
[2024-09-06 12:17] LABS: Glucose - Point of Care 192 mg/dl (70-99)
--- NOTE | 2024-09-06 13:31 | W.PN.UPDATE ---
Update Note
Progress Note Update
Nonbillable addendum
H&P submitted 130 AM
Doing well
did not eat breakfast and ate a light lunch
received Lantus 30 units 1 AM and 10 units this AM; reports doses of up to 100 units daily
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 Continue insulin titrations. no evidence of DKA. of note, currently incarcerated with guards at bedside.
[2024-09-06] MEDS: NOVOLOG FLEXPEN 20 UNITS SC ×2 (13:42→16:49)
[2024-09-06] MEDS: NOVOLOG FLEXPEN-MODERATE RESISTANCE 1 UNITS SC ×2 (13:43→16:49)
[2024-09-06 16:13] LABS: Glucose - Point of Care 162 mg/dl (70-99)
[2024-09-06 22:27] LABS: Glucose - Point of Care 64 mg/dl (70-99)
[2024-09-06 22:56] LABS: Glucose - Point of Care 112 mg/dl (70-99)
[2024-09-07] MEDS: NSS IV (00:40)
[2024-09-07 01:00] LABS: Glucose - Point of Care 119 mg/dl (70-99)
[2024-09-07 03:01] LABS: Glucose - Point of Care 108 mg/dl (70-99)
[2024-09-07 06:44] LABS: Hematocrit 40.9 % (39.0-52.0); Hemoglobin 13.6 g/dL (13.0-18.0); Mean Corp Hgb Conc. 33.3 g/dL (33.0-37.0); Mean Corpuscular Hgb 27.6 pg (27.0-31.0); Mean Corpuscular Volume 83.1 fL (80.0-94.0); Mean Platelet Volume 10.5 fL (7.4-10.4); Platelet Count 253 10^3/uL (130-400); Red Blood Cell Count 4.92 10^6/uL (4.70-6.10); Red Cell Dist. Width 13.3 % (11.5-14.5); White Blood Cell Count 6.7 10^3/uL (4.8-10.8)
[2024-09-07 07:05] LABS: Blood Urea Nitrogen 7 mg/dl (9-20); Calcium 8.9 mg/dl (8.4-10.2); Carbon Dioxide 24 mmol/L (22-30); Chloride 102 mmol/L (98-107); Estimated Creatinine Clearance > 125 ml/min; Glucose 174 mg/dl (70-99); Potassium 3.9 mmol/L (3.5-5.1); Sodium 136 mmol/L (135-145); eGFR > 60.00
[2024-09-07 07:25] VITALS: BP 129/88
[2024-09-07 07:36] LABS: Glucose - Point of Care 203 mg/dl (70-99)
[2024-09-07] MEDS: NOVOLOG FLEXPEN 18 UNITS SC ×2 (08:27→13:26)
[2024-09-07] MEDS: NOVOLOG FLEXPEN-MODERATE RESISTANCE 3 UNITS SC ×2 (08:27→13:26)
[2024-09-07] MEDS: LANTUS 0.1 UNITS SC (08:28)
--- NOTE | 2024-09-07 08:32 | PN.DE.MGMTRT ---
Insulin Management
- -
09/07/2024: Diabetes management Consult
24 year old male well known to Known to Diabetes team from prior admissions due to DKA. Pt presented to the ED from [facility] c/o high blood sugars.
PMH: Depression, obesity and T1DM since age 12.
States he was given 14 units of insulin by [facility] nurse. He has been at [facility] for the past 5 days. He states they switched his insulin from the morning to evening, and the Lantus in the morning. He stated that while at present he has been getting
only Lantus 6 units in the evening as a sliding scale.
Glucose on admission was 620, improved to 450 after a dose of insulin.
He normally takes 100 units of Lantus with 25-30 units of Humalog with meals and follows with Dr. Roa for his diabetes management.
He had previously been managed with an insulin pump but is no longer using this, has been on SQ insulin for about a year. Cr 2.0, eGFR 41.6, A1C 9.3%.
Pt awake, alert, oriented, sitting up in bed, able to discuss diabetes management, family at bedside.
Noted for an episode of Hypoglycemia to 64 @HS, fasting 174 (V), 203 POC.
He has been ordered 10 units of Lantus and his AC NovoLog dose has been reduced to [address] Montero
Will give an additional 40 units of Lantus Now as pt normally takes 100 units of Lantus daily
Will cont NovoLog 18 units AC and moderate corrective. 1800 ADA diet.
Will cont to follow and adjust insulin dose if necessary. Will update A1C
Meds at discharge: Lantus 50 units in AM and NovoLog 18 units AC
Diabetes History
- -
Type of Diabetes: 2 requiring insulin
Pre-Admission Diabetes Regimen
09/07/24
06:10
Creatinine 0.6 L
Insulin Pump Settings
IP Diabetes Regimen
09/06/24 09/06/24 09/06/24
12:16 16:11 22:21
Glucose
POC Glucose 192 H 162 H 64 L
09/06/24 09/07/24 09/07/24
22:54 00:59 02:59
Glucose
POC Glucose 112 H 119 H 108 H
09/07/24 09/07/24
06:10 07:35
Glucose 174 H
POC Glucose 203 H
Meal type: Dinner
Meal type: Lunch
Meal type: Breakfast
Amount consumed: 100%
Amount consumed: 100%
Amount consumed: 0
Patient Education
[2024-09-07] MEDS: ABILIFY 15 MG PO (10:20)
[2024-09-07] MEDS: LANTUS 0.4 UNITS SC (10:20)
[2024-09-07] MEDS: ZOLOFT 100 MG PO (10:20)
[2024-09-07 10:25] LABS: Glucose - Point of Care 166 mg/dl (70-99)
--- NOTE | 2024-09-07 10:43 | W.PN.HOSP.TC ---
Today's Communication/Plan
-
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
Assessment / Plan
Assessment / Plan
24yo M with psychiatric d/o, DM type 1 [facility] with hyperglycemia. PAtient previously was on Lispro 100units in AM and Novolog 20units AC at home with episodix hypoglycemia to 48 aon his Dexcom. In the [facility] he was given only Lantus 10
units. Improved on adjusted insulin. DM SEED SALES MANAGER consult pending, meanwhile blood glucose is in acceptable range in between 100-200 with most readings
A/P:
#DM type 1 with hyperglycemia
Insulin basal/bolus, Accchekcs and sliding scale and DM diet
HgbAc1 on 07/04/24 - 9.3%
#Anxiety
#Depression
#Psychiatric d/o
stable
cont home meds
DVT ppx on SCDs
Full code
I have spent at least 38min reviewing chart, test reuslts, communication with consultantants and proviing direct patient care
Anticipated Discharge: Within 24 hours
Subjective/Interval History
-
Date of Service: September 07, 2024
Objective Data
-
Labs:
Laboratory Results
09/07/24
06:10
WBC 6.7
Hgb 13.6
Hct 40.9
Plt Count 253
Sodium 136
Potassium 3.9
Chloride 102
Carbon Dioxide 24
BUN 7 L
Creatinine 0.6 L
Glucose 174 H
Calcium 8.9
Vital Signs:
Vital Signs
Temp Pulse Resp BP Pulse Ox
97.6 F 63 20 129/88 95
09/07/24 07:25 09/07/24 07:25 09/07/24 07:25 09/07/24 07:25 09/07/24 07:25
I&O
03/09/07/24 09/08/24
06:59 06:59 06:59
Intake Total 720 / 720 3070 / 3070
Output Total 2200 / 2200
Balance 720 / 720 870 / 870
Review of Systems
-
History Source: Patient
All other systems: Reviewed and negative
Physical Exam
-
General: No Apparent Distress
HEENT: Normocephalic
Respiratory: Clear to Auscultation
Cardiac: Regular Rhythm
GI: Soft, Nontender and Nondistended
Genito-urinary: No Costovertebral Tender
Musculoskeletal: No Clubbing, No Cyanosis and No Edema
Neuro: Awake, Alert, Oriented and AO x 3
Psych: Calm
[2024-09-07 11:48] LABS: Glucose - Point of Care 100 mg/dl (70-99)
--- NOTE | 2024-09-07 13:25 | CM ---
Addendum entered by Dee Mcdermott 09/07/24 15:02:
Corrected numbers
[facility]
Report #: [phone]
Fax #: [phone]
Original Note:
Chart reviewed
tt from [facility] patient LOC change inpatient
Spoke with Denise at [facility]
PLAN: Return to [facility]
Report #: [phone]
Fax #: [phone]
--- NOTE | 2024-09-07 13:35 | W.DCSUMMARY ---
Discharge Summary
Discharge Data
Date of Admission: 09/07/24
Date of Discharge: 09/07/24
-
Pending Results: No
Hospital Course
24yo M with psychiatric d/o, DM type 1 brought from the long term with hyperglycemia. PAtient previously was on Lispro 100units in AM and Novolog 20units AC at home with episodix hypoglycemia to 48 aon his Dexcom. In the long term he was given only Lantus 10
units. Improved on adjusted insulin. 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 Meanwhile blood glucose is in acceptable range in between 100-200 with most readings. Medcially stable for d/c back to [facility]
I have spent at least 38min reviewing chart, test results, communication with consultants and proviing direct patient care
Patient was managed for:
#DM type 1 with hyperglycemia
#Anxiety
#Depression
#Psychiatric d/o
Discharge Plan
-
Patient Disposition: Nursing Home
Discharge Diagnosis/Procedures: hyperglycemia
Diet: Diabetic, Carb Controlled
Referrals:
[facility] [Family Provider] -
Prescriptions:
Continued
sertraline 100 mg tablet
100 mg PO DAILY@1100
aripiprazole 15 mg tablet
15 mg PO DAILY@1100
Vraylar 6 mg Capsule
3 mg PO DAILY
Patient Comments:
3 mg capsules, patients own med card with press through tablets, 3 mg, first 8 capsules have already been activated/pushed through. per trimming caser Juan F.
(DME) OneTouch Verio test strips Strip
Qty: 130 0RF
Rx Instructions:
Pt testing 4 times a day
Changed
insulin aspart U-100 [Novolog FlexPen U-100 Insulin] 100 unit/mL (3 mL) Insulin Pen
18 sliding scale dose SC AC 30 Days Qty: 5 0RF
Rx Instructions:
Take before each meal
insulin glargine 100 unit/mL (3 mL) insulin pen
50 unit SC QPM Qty: 15 2RF
Discharge Orders:
Discharge Patient (As Directed); Ordered 09/07/24
Ordered By: Carter Montero
Discharge Date and Time
Print Language: CITIZ[place]
[2024-09-07 15:31] VITALS: BP 130/88
[2024-09-07 16:48] LABS: Glucose - Point of Care 113 mg/dl (70-99)
== END 2024-09-07 18:09 | DRG 639 ==
LOC: 2 NORTH 08:36
PROVIDERS: Internal Medicine; ADMITTING PHYSICIAN Internal Medicine; ATTENDING PHYSICIAN Internal Medicine; EMERGENCY PHYSICIAN Emergency Medicine
DX: E10.65 Type 1 diabetes mellitus with hyperglycemia (principal); F41.9 Anxiety disorder, unspecified; F32.A Depression, unspecified; Z79.4 Long term (current) use of insulin; E66.9 Obesity, unspecified; Z68.30 Body mass index [BMI] 30.0-30.9, adult
CPT/HCPCS: 80048; 80053; 82805; 82962; 83735; 85025; 85027; 87070; 87147; 96361; 96374; 96376; 99291